=== PATIENT | female | born 1930 | race Hispanic/Latino ===

== ENCOUNTER 2017-06-04 12:04 | Inpatient (IN) | payer OTHER, MEDICAID ==
--- NOTE | 2017-06-04 12:14 | ED PDOC ---
Arrival/HPI - General Chief Complaint: Dizziness/Lightheaded Time Seen by Provider: 06/04/17 12:13 Historian: Patient, EMS - History of Present Illness Narrative History of Present Illness (Text): 06/04/17 12:33 pt p/w sudden onset of severe uncontrolled shaking/jittery, tremors, + very lightheaded/dizzy spells, prior to ED arrival; pt states she became alarmed by the symptoms and decided to call 911/EMS to come to ED for further eval; pt felt like she may have passed out; pt states no fever, ? 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 PCP: Dr MOORE pt is ambidextrous pt lives alone 06/04/17 18:45 Time/Duration: Prior to Arrival Symptom Onset: Sudden Symptom Course: Unchanged Quality: Cramping Severity Level: Mild Activities at Onset: Rest Context: Home Past Medical History - Provider Review Nursing Documentation Reviewed: Yes - Travel History Have you recently traveled outside [place] w/in the past 3 mons?: No - Past History Past History: No Previous - Infectious Disease Hx of Infectious Diseases: None - Tetanus Immunization Tetanus Immunization: Unknown - Reproductive Menopause: Yes Currently : No - Cardiac Hx Cardiac Disorders: Yes (mi cad) Hx Hypertension: Yes Hx Pacemaker: No Hx Peripheral Edema: Yes (right leg) Other/Comment: Stents x3 - Pulmonary Hx Respiratory Disorders: No (hx pe) Hx Asthma: No Hx Chronic Obstructive Pulmonary Disease (COPD): No Hx Emphysema: No - Neurological Hx Neurological Disorder: Yes (NEUROPATHY) HX Cerebrovascular Accident: No Hx Dementia: No Hx Seizures: Yes - HEENT Hx HEENT Disorder: Yes Hx Cataracts: Yes (B/L CATARACT WITH SX) - Renal Hx Renal Disorder: No - Endocrine/Metabolic Hx Endocrine Disorders: Yes Hx Diabetes Mellitus Type 2: Yes - Hematological/Oncological Hx Blood Disorders: No (blood transfusion) Hx Anemia: No Hx Cancer: No - Integumentary Other/Comment: reddened sacrum/buttocks - Musculoskeletal/Rheumatological Hx Falls: Yes (last week fx r great and 3rd toe) Hx Fractures: Yes (right great and 3rd toe fell last week) Hx Unsteady Gait: Yes (needs a walker) - Gastrointestinal Hx Gastrointestinal Disorders: Yes (CONSTIPATION,GASTRITIS,ESOPHAGITIS) - Genitourinary/Gynecological Hx Genitourinary Disorders: No - Psychiatric Hx Psychophysiologic Disorder: No Hx Depression: No Hx Emotional Abuse: No Hx Physical Abuse: No Hx Substance Use: No - Past Surgical History Past Surgical History: Unable to Obtain - Surgical History Hx Cardiac Catheterization: Yes Hx Coronary Stent: Yes (x3) Other/Comment: 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 - Anesthesia Hx Anesthesia: Yes Hx Anesthesia Reactions: Yes (VOMITING) Hx Malignant Hyperthermia: No - Suicidal Assessment Feels Threatened In Home Enviroment: No Family/Social History - Physician Review Nursing Documentation Reviewed: Yes Family/Social History: Unknown Family HX Smoking Status: Former Smoker Hx Alcohol Use: No Hx Substance Use: No Hx Substance Use Treatment: No Allergies/Home Meds Allergies/Adverse Reactions: Allergies No Known Allergies Allergy (Verified 06/04/17 17:26) Home Medications: Home Meds Medication Instructions Recorded Confirmed Aspirin [Aspir 81] 81 mg PO DAILY 08/08/11 06/04/17 [place] Oil/Providence-3 Fatty Acids 500 mg PO DAILY 08/08/11 06/04/17 [Fish Oil 500 mg Softgel] Vitamin B Complex & Vitamin C 1 tab PO DAILY 08/08/11 06/04/17 [Strovite] Colesevelam HCl [Welchol] 625 mg PO BID 06/04/17 06/04/17 Lamotrigine [Lamictal Xr] 25 mg PO DAILY 06/04/17 06/04/17 Lisinopril [Zestril] 20 mg PO DAILY 06/04/17 06/04/17 Omeprazole 20 mg PO DAILY 06/04/17 06/04/17 PARoxetine [Paxil] 20 mg PO DAILY 06/04/17 06/04/17 Simvastatin [Zocor] 20 mg PO DAILY 06/04/17 06/04/17 amLODIPine [Norvasc] 10 mg PO DAILY 06/04/17 06/04/17 Review of Systems - Review of Systems Constitutional: Fatigue Eyes: Normal ENT: Normal Respiratory: SOB Cardiovascular: Palpitations. absent: Chest Pain Gastrointestinal: Normal Genitourinary Female: Normal Musculoskeletal: Normal Skin: Normal Neurological: Dizziness, Other (tremors/shakes) Endocrine: Normal Hemo/Lymphatic: Normal Psychiatric: Normal Physical Exam Vital Signs Reviewed: Yes Vital Signs Temp Pulse Resp BP Pulse Ox 06/04/17 14:50 102 H 20 126/68 96 06/04/17 12:10 100.8 F H 114 H 20 159/81 H 98 Temperature: Febrile Blood Pressure: Hypertensive Pulse: Tachycardic Respiratory Rate: Normal Appearance: Positive for: Well-Appearing, Non-Toxic, Uncomfortable, Other (alert /awake, GCS = 15, oriented x 3, resting in bed, NAD, uncomfortable) Pain Distress: None Mental Status: Positive for: Alert and Oriented X 3 - Systems Exam Head: Present: Atraumatic, Normocephalic, Other (mild bi-temporal wasting) Pupils: Present: PERRL, Other (visual field intact b/l, no photophobia, sclera anicteric, no nystagmus) Extroacular Muscles: Present: EOMI Conjunctiva: Present: Normal Ears: Present: Normal Mouth: Present: Dry, Other (uvula/tongue are midline, no exudate/lesions, intact dentitions, mild dry oral mucosa) Pharnyx: Present: Normal Nose (External): Present: Atraumatic Nose (Internal): Present: Normal Inspection Neck: Present: Normal Range of Motion, Trachea Midline, Other (no midline tenderness, no meningeal signs, no step off). No: Meningeal Signs, MIDLINE TENDERNESS Respiratory/Chest: Present: Clear to Auscultation, Good Air Exchange, Other ( CTA b/l, no w/r/r). No: Respiratory Distress, Accessory Muscle Use Cardiovascular: Present: Normal S1, S2, Tachycardic. No: Murmurs Abdomen: Present: Normal Bowel Sounds, Other (well nourished female, no focal tenderness; no jeffers's sign, no mcburney's point tenderness, no masses/rebound/ guarding/rigidity) Rectal: Present: Normal Rectal Tone, Other (GUAIC -). No: Occult Blood, Rectal Tenderness, Gross Blood, Melena, Hemorrhoids Back: Present: Normal Inspection. No: CVA Tenderness, Midline Tenderness Upper Extremity: Present: Normal Inspection, Normal ROM, NORMAL PULSES, Neurovascularly Intact. No: Deformity Lower Extremity: Present: Normal Inspection, NORMAL PULSES, Normal ROM, Neurovascularly Intact. No: Deformity Neurological: Present: GCS=15, CN II-XII Intact, Speech Normal, Other (NIH stroke scale ~ 0) Skin: Present: Warm, Dry, Pale, Other (cap refill ~ 1sec, no ulcerations, no petechiae) Psychiatric: Present: Alert, Oriented x 3 Medical Decision Making ED Course and Treatment: 06/04/17 12:34 Impression: near syncope, headache, palpitations, shakey i have consider all the differential diagnosis regarding pt's chief medical complaints/clinical findings, including but are not limited to: dizziness/ lightheadedness/palpitations A/P: dizziness/palpitations, near syncope, shakey - labs - iv - ekg - ct - xray - ua - supportive care - observe/reevaluation 06/04/17 14:30 pt is currently comfortable, pt remained symptomatic with dizziness/shakiness when changing positions pt's vital signs are stable currently pt is made aware of her medical results agrees with admission/tele paging Dr Arredondo [phone] Dr Arredondo contacted, made aware, agrees with admission, would like blood cultures, and to consult Dr Keita (GI); abx accordingly Re-evaluation Time: 14:20 Reassessment Condition: Improving,but remains with symptoms - Critical Care Critical Care Minutes: 45 minutes Critical Care Time: Excluding Proc Time Narrative Critical Care (Text): 06/04/17 14:21 critical care time: 45min, excluding procedure time, excluding time teaching residents/students/mid-level providers; including initial eval/diagnosis, diagnostic interpretation, re-eval, consultations, final disposition - Lab Interpretations Lab Results: 06/04/17 12:50 06/04/17 12:50 Lab Results 06/04/17 14:20: Blood Type AB POSITIVE, Antibody Screen Negative, Crossmatch See Detail, BBK History Checked Patient has bt 06/04/17 12:50: TSH 3rd Generation 1.23 06/04/17 12:50: Sodium 143, Potassium 4.2, Chloride 108 H, Carbon Dioxide 24, Anion Gap 15, BUN 15, Creatinine 0.7, Est GFR ( Amer) > 60, Est GFR (Non- Af Amer) > 60, Random Glucose 114 H, Calcium 9.4, Total Bilirubin 0.6, AST 23, ALT 26, Alkaline Phosphatase 109, Troponin I < 0.01, Total Protein 6.3, Albumin 3.8, Globulin 2.6, Albumin/Globulin Ratio 1.5, Lipase 129 06/04/17 12:50: PT 11.2, INR 0.98, APTT 29.4 06/04/17 12:50: WBC 12.8 H D, RBC 3.48 L, Hgb 7.7 L, Hct 26.0 L, MCV 74.7 L, MCH 22.1 L, MCHC 29.6 L, RDW 16.1 H, Plt Count 269, MPV 9.7, Gran % 82.0 H, Lymph % (Auto) 9.5 L, Callaway % (Auto) 7.1 H, Eos % (Auto) 1.2 L, Baso % (Auto) 0.2 , Gran # 10.47 H, Lymph # (Auto) 1.2, Callaway # (Auto) 0.9 H, Eos # (Auto) 0.2, Baso # (Auto) 0.03 I have reviewed the lab results: Yes Interpretation: Abnormal lab values (low H/H) - RAD Interpretation Narrative RAD Interpretations (Text): 06/04/17 13:20 Chest X-ray: Creator : Daphne Bardales MD COMPARISON: 11/07/2014. FINDINGS: LUNGS: The lungs are well inflated. There is mild pulmonary venous congestion. PLEURA: No significant pleural effusion identified, no pneumothorax apparent. CARDIOVASCULAR: The heart is normal in size. Atherosclerotic aortic arch calcifications are present. OSSEOUS STRUCTURES: No significant abnormalities. VISUALIZED UPPER ABDOMEN: Normal. OTHER FINDINGS: There is chronic elevation of the right hemidiaphragm. IMPRESSION: No active pulmonary disease. 06/04/17 13:[address]: Creator : Daphne Bardales MD COMPARISON: 12/24/2013 FINDINGS: HEMORRHAGE: No intracranial hemorrhage. BRAIN: Schultz-white matter differentiation is preserved. There is no mass, mass effect or abnormal extra-axial fluid collection. There is no territorial infarction.There are coarse atherosclerotic calcifications in the cavernous carotid and vertebral arteries. VENTRICLES: There is mild age-related global parenchymal volume loss and proportionate enlargement of the ventricles and cortical sulci. CALVARIUM: The skull base and calvarium. PARANASAL SINUSES: Predominantly clear. MASTOID AIR CELLS: Predominantly clear. There is cerumen in the external auditory canals, worse on the left. OTHER FINDINGS: None. IMPRESSION: No acute intracranial abnormality. Radiology Orders: 06/04/17 12:35 HEAD W/O CONTRAST [CT] Stat 06/04/17 12:36 CHEST PORTABLE [RAD] Stat Central Office Operator: Radiologist - EKG Interpretation EKG Interpretation (Text): 06/04/17 12:38 Sinus tachycardia at 115 bpm, normal axis, no ectopy, qs in leads III, inverted T in leads II/III/V3-6, no st changes, ABNL EKG; unchanged compare with old ekg 10/2014 Interpreted by ED Physician: Yes Type: 12 lead EKG Comparison: Similar to previous EKG - Medication Orders Current Medication Orders: Acetaminophen (Tylenol 325mg Tab) 650 mg PO Q6H PRN PRN Reason: Fever >100.4 F Sodium Chloride (Sodium Chloride 0.9%) 1,000 mls @ 100 mls/hr IV .Q10H PREM Last Admin: 06/04/17 12:57 Dose: 100 mls/hr eMAR Start Stop Document 06/04/17 12:57 AMELIA (Rec: 06/04/17 12:57 AMELIA [id number]) Intravenous Solution Start Date 06/04/17 Start Time 12:57 Ceftriaxone Sodium (Rocephin 1 Gram Ivpb) 1 gm in 100 mls @ 100 mls/hr IVPB DAILY PREM PRN Reason: Protocol Sodium Chloride (Sodium Chloride 0.45%) 1,000 mls @ 75 mls/hr IV .[id number] PREM Insulin Human Regular (Humulin R Low) 0 units SC ACHS PREM PRN Reason: Protocol Metoprolol Succinate (Toprol Xl) 25 mg PO BRK PREM Non-Formulary Medication (Lamotrigine [Lamictal Xr]) 25 mg PO DAILY PREM Ondansetron HCl (Zofran Inj) 4 mg IVP Q6H PRN PRN Reason: Nausea/Vomiting Pantoprazole Sodium (Protonix Inj) 40 mg IVP DAILY PREM Paroxetine HCl (Paxil) 20 mg PO DAILY PREM Discontinued Medications Acetaminophen (Tylenol 325mg Tab) 650 mg PO STAT STA Stop: 06/04/17 14:16 Last Admin: 06/04/17 14:45 Dose: 650 mg MAR Pain/Vitals Document 06/04/17 14:45 AMELIA (Rec: 06/04/17 15:00 AMELIA [id number]) Pain Reassessment Is This A Pain ReAssessment? No Sleep Is patient sleeping during reassessment? No Presence of Pain Presence of Pain Yes Pain Scale Used Pain Scale Used Numeric Location Description Intermittent Intensity 4 Aspirin (Aspirin) 325 mg PO STAT STA Stop: 06/04/17 12:38 Last Admin: 06/04/17 12:56 Dose: 325 mg - Scribe Statement The provider has reviewed the documentation as recorded by the Meghan Gusman Provider Scribe Attestation: All medical record entries made by the Meghan were at my direction and personally dictated by me. I have reviewed the chart and agree that the record accurately reflects my personal performance of the history, physical exam, medical decision making, and the department course for this patient. I have also personally directed, reviewed, and agree with the discharge instructions and disposition. Disposition/Present on Arrival - Present on Arrival Any Indicators Present on Arrival: No History of DVT/PE: No History of Uncontrolled Diabetes: No Urinary Catheter: No History of Decub. Ulcer: No History Surgical Site Infection Following: None - Disposition Have Diagnosis and Disposition been Completed?: Yes Diagnosis: Anemia, Near syncope, Dehydration, Fever, At risk for sepsis Disposition: HOSPITALIZED Disposition Time: 14:23 Patient Plan: Admission, Telemetry Patient Problems: Current Active Problems Problem Status Onset Near syncope Acute Anemia Acute Dehydration Acute Fever Acute At risk for sepsis Acute Condition: STABLE
[2017-06-04] MEDS ORDERED: Sodium Chloride 0.9% 1,000 ML IV SCH (12:45)
[2017-06-04 13:14] LABS: BASO # 0.03 K/mm3 (0.0-2.0); BASO % 0.2 % (0.0-3.0); EOS # 0.2 (0.0-0.7); EOS % 1.2 % (1.5-5.0); GRAN # 10.47 (1.4-6.5); HEMOGLOBIN 7.7 g/dL (12.0-16.0); LYMPH # 1.2 (1.2-3.4); LYMPH % 9.5 % (22.0-35.0); MEAN CELL VOLUME 74.7 fl (80.0-105.0); MEAN CORPUSCULAR HEMOGLOBIN 22.1 pg (25.0-35.0); MEAN CORPUSCULAR HGB CONC 29.6 g/dl (31.0-37.0); MEAN PLATELET VOLUME 9.7 fl (7.0-11.0); MONO # 0.9 (0.1-0.6); MONO % 7.1 % (1.0-6.0); RBC 3.48 10^6/uL (3.5-6.1); RED CELL DISTRIBUTION WIDTH 16.1 % (11.5-14.5); WHITE BLOOD COUNT 12.8 10^3/ul (4.5-11.0)
--- NOTE | 2017-06-04 13:18 | RAD ---
HISTORY: dizziness/lightheadedness/[place] COMPARISON: 11/07/2014. FINDINGS: LUNGS: The lungs are well inflated. There is mild pulmonary venous congestion. PLEURA: No significant pleural effusion identified, no pneumothorax apparent. CARDIOVASCULAR: The heart is normal in size. Atherosclerotic aortic arch calcifications are present. OSSEOUS STRUCTURES: No significant abnormalities. VISUALIZED UPPER ABDOMEN: Normal. OTHER FINDINGS: There is chronic elevation of the right hemidiaphragm. IMPRESSION: No active pulmonary disease.
[2017-06-04 13:20] LABS: ALB/GLOB RATIO 1.5 (1.1-1.8); ALBUMIN 3.8 g/dL (3.0-4.8); ALT/SGPT 26 U/L (7-56); AST/SGOT 23 U/L (14-36); BLOOD UREA NITROGEN 15 mg/dL (7-21); CALCIUM 9.4 mg/dL (8.4-10.5); GFR AFRICAN-AMERICAN > 60; GFR NON-AFRICAN AMERICAN > 60; LIPASE 129 U/L (23-300)
[2017-06-04 13:31] LABS: INR 0.98 (0.93-1.08); PARTIAL THROMBOPLASTIN TIME 29.4 Seconds (25.1-36.5); PROTHROMBIN TIME 11.2 SECONDS (9.4-12.5); TROPONIN I < 0.01 ng/mL
--- NOTE | 2017-06-04 13:40 | CT ---
PROCEDURE: CT HEAD WITHOUT CONTRAST. HISTORY: dizziness/lightheadedness COMPARISON: 12/24/2013 TECHNIQUE: Axial computed tomography images were obtained through the head/brain without intravenous contrast. Radiation dose: Total exam DLP = 816.69 MGy-cm. This CT exam was performed using one or more of the following dose reduction techniques: Automated exposure control, adjustment of the mA and/or kV according to patient size, and/or use of iterative reconstruction technique. FINDINGS: HEMORRHAGE: No intracranial hemorrhage. BRAIN: Schultz-white matter differentiation is preserved. There is no mass, mass effect or abnormal extra-axial fluid collection. There is no territorial infarction.There are coarse atherosclerotic calcifications in the cavernous carotid and vertebral arteries. VENTRICLES: There is mild age-related global parenchymal volume loss and proportionate enlargement of the ventricles and cortical sulci. CALVARIUM: The skull base and calvarium. PARANASAL SINUSES: Predominantly clear. MASTOID AIR CELLS: Predominantly clear. There is cerumen in the external auditory canals, worse on the left. OTHER FINDINGS: None. IMPRESSION: No acute intracranial abnormality.
[2017-06-04 16:44] LABS: URINE BILIRUBIN NEGATIVE (NEGATIVE); URINE BLOOD TRACE-INTACT (NEGATIVE); URINE GLUCOSE (UA) NEGATIVE (NEGATIVE); URINE LEUKOCYTE ESTERASE SMALL Leu/uL (NEGATIVE); URINE PROTEIN NEGATIVE mg/dL (<30 mg/dL); URINE UROBILINOGEN 0.2 E.U./dL (<1 E.U./dL)
[2017-06-04 16:47] LABS: URINE APPEARANCE TURBID (CLEAR); URINE COLOR YELLOW (YELLOW)
[2017-06-04 16:59] LABS: URINE BACTERIA MANY (NEG); URINE RBC 0 - 2 /hpf (0-2)
[2017-06-04] MEDS ORDERED: Sodium Chloride 0.45% 1,000 ML IV SCH ×2 (17:30)
[2017-06-04] MEDS: LAMOTRIGINE 25 MG PO SCH (18:43)
[2017-06-04] MEDS: cefTRIAXone 1 gm 1 GM/100 ML BAG IVPB SCH (18:44)
[2017-06-04 19:43] VITALS: BMI 32.2
[2017-06-04] MEDS ORDERED: Pneumococcal 23-Valent Vaccine IM ONE (19:43)
--- NOTE | 2017-06-04 21:11 | CARD ---
APPROVED REPORT EKG Measurement Heart [id number] <Conclusion> Sinus tachycardia Nonspecific ST and T wave abnormality Abnormal ECG
[2017-06-05] MEDS: Insulin Reg-LOW-Coverage SC SCH ×4 (00:49→16:51)
--- NOTE | 2017-06-05 05:01 | HP ---
HISTORY OF PRESENT ILLNESS: Patient is an 86-year-old female, who was brought to emergency room because of not feeling well, having fever at home, feeling light headed and dizzy, not eating well. PAST MEDICAL HISTORY: She has significant past medical history for: 1. Hypertension. 2. History of depression. 3. Gastritis. 4. Coronary artery disease, status post angioplasty. 5. Diabetic neuropathy. 6. History of seizure disorder. 7. Non-insulin dependant diabetes. ALLERGIES: SHE IS NOT ALLERGIC TO ANY MEDICATIONS. MEDICATION AT HOME: She is on simvastatin 20 mg daily, amlodipine 10 mg daily, lisinopril 20 mg daily, Paxil 20 mg daily, omeprazole 20 mg daily, Lamictal 25 daily, WelChol 625 twice a day, aspirin 81 daily, multivitamin, and salmon oil. SOCIAL HISTORY: She used to be heavy smoker, but quit 40 years ago. PHYSICAL EXAMINATION: GENERAL: She is awake, alert, oriented, communicative. VITAL SIGNS: Temperature 100.8, pulse 114, respirations 20, blood pressure 126/68. LUNGS: Bilateral fair airflow. No rhonchi or crackles. HEART: S1, S2 audible. ABDOMEN: Soft, nontender. No rebound. No guarding. NEUROLOGIC: She is awake, alert, oriented, communicative. LABORATORY DATA: WBC is 12.8, hemoglobin 7.7, hematocrit 26, platelet 269, PT 11.2, INR 0.98. Chemistry: Sodium 143, potassium 4.2, chloride 108, CO2 24, BUN 15, creatinine 0.7, blood sugar of 114. LFTs are within normal limit. Urine shows positive nitrites and leukocytes, wbc's 10 to 15. She had x-ray chest done that shows no active pulmonary disease. CT scan of the head and brain shows no acute intracranial abnormalities. ASSESSMENT: 1. Lethargy with fever. 2. Symptomatic anemia. 3. Hypertension. 4. Hyperlipidemia. 5. Coronary artery disease. 6. Non-insulin dependant diabetes. 7. Seizure disorder. PLAN: Patient will be admitted. We will transfuse 2 packed RBCs and we will consult Dr. Burk. We will monitor blood sugar and empirically start her on antibiotics. We will follow up cultures. Mahmoodah Perveen, MD [facility] # [id number]
[2017-06-05 07:21] LABS: BASO # 0.05 K/mm3 (0.0-2.0); BASO % 0.7 % (0.0-3.0); EOS # 0.2 (0.0-0.7); EOS % 2.9 % (1.5-5.0); GRAN # 4.93 (1.4-6.5); GRAN % 65.1 % (50.0-68.0); LYMPH # 1.8 (1.2-3.4); LYMPH % 23.6 % (22.0-35.0); MEAN CELL VOLUME 75.9 fl (80.0-105.0); MEAN CORPUSCULAR HEMOGLOBIN 23.4 pg (25.0-35.0); MEAN CORPUSCULAR HGB CONC 30.8 g/dl (31.0-37.0); MEAN PLATELET VOLUME 9.9 fl (7.0-11.0); MONO # 0.6 (0.1-0.6); MONO % 7.7 % (1.0-6.0); RBC 3.98 10^6/uL (3.5-6.1); RED CELL DISTRIBUTION WIDTH 16.6 % (11.5-14.5); WHITE BLOOD COUNT 7.6 10^3/ul (4.5-11.0)
[2017-06-05 07:28] LABS: HEMOGLOBIN 9.3 g/dL (12.0-16.0)
[2017-06-05 07:37] LABS: ALB/GLOB RATIO 1.3 (1.1-1.8); ALBUMIN 3.5 g/dL (3.0-4.8); ALT/SGPT 22 U/L (7-56); AST/SGOT 21 U/L (14-36); BLOOD UREA NITROGEN 9 mg/dL (7-21); GFR AFRICAN-AMERICAN > 60; GFR NON-AFRICAN AMERICAN > 60
[2017-06-05] MEDS: Metoprolol Succinate 25 mg XL Tab PO SCH (09:40)
[2017-06-05] MEDS: cefTRIAXone 1 gm 1 GM/100 ML BAG IVPB SCH (09:40)
[2017-06-05] MEDS: LAMOTRIGINE 25 MG PO SCH (09:41)
[2017-06-05] MEDS ORDERED: Barium Sulfate Susp 2.1% w/v, 2.0% w/w 450 mL Bottle PO ONE (10:38)
--- NOTE | 2017-06-05 12:16 | PN ---
DATE: SUBJECTIVE: The patient is 86 years old. Seen and examined, lying in bed, seems to be comfortable. She states she feels better than yesterday. No more rectal bleeding. Fever has subsided. PHYSICAL EXAMINATION: VITAL SIGNS: She is afebrile, pulse 77, respirations 18, blood pressure 144/74. LUNGS: Bilateral good airflow. No rhonchi or crackle. HEART: S1 and S2 audible. ABDOMEN: Soft. Nontender. No rebound. No guarding. NEUROLOGIC: She is awake, alert, oriented, communicative. EXTREMITIES: Bilateral leg, no edema. LABORATORY EXAM: WBC 7.6, hemoglobin 9.3, hematocrit 30.4, platelet of 244. Chemistry: Sodium 144, potassium 3.6, chloride 109, CO2 of 25, BUN 9, creatinine 0.6, blood sugar of 103. Urine cultures are pending. ASSESSMENT: 1. Symptomatic anemia, probably secondary to gastrointestinal bleed. 2. Hypertension. 3. Jwl-nzeajjr-cdomqfvmt diabetes. 4. Status post 2 blood transfusions. 5. Fever secondary to urinary tract infection. PLAN: I will follow up urine culture for identification. I will advance her diet. Discontinue her IV fluids. Order for stool for the occult blood. Monitor her blood sugar. Once the bacteria is identified, we will make discharge plan and she can have endoscopy, colonoscopy done as outpatient. She will also get CT scan of the abdomen and pelvis and make further recommendations. Alyx Arredondo MD
[2017-06-05] MEDS ORDERED: Iohexol 350 MG/100 ML VIAL ONE (13:20)
--- NOTE | 2017-06-05 14:40 | CT ---
PROCEDURE: CT Abdomen and Pelvis with contrast HISTORY: Anemia COMPARISON: 11/07/2014. TECHNIQUE: CT scan of the abdomen and pelvis was performed after administration of intravenous contrast. Oral contrast was administered. Coronal and sagittal reformatted images were obtained. Contrast dose: 100 cc Omnipaque 350 Radiation dose: Total exam DLP = 570.89 mGy-cm. This CT exam was performed using one or more of the following dose reduction techniques: Automated exposure control, adjustment of the mA and/or kV according to patient size, and/or use of iterative reconstruction technique. FINDINGS: LOWER THORAX: There is subsegmental atelectasis in the lower lobes with more confluent airspace disease in the right lung base. LIVER: Normal in size with homogeneous enhancement. No gross lesion or ductal dilatation. GALLBLADDER AND BILE DUCTS: Surgically absent. PANCREAS: Normal in size with homogeneous enhancement. No gross lesion or ductal dilatation. SPLEEN: Normal in size and appearance. ADRENALS: No discrete nodule. KIDNEYS AND URETERS: There is mild renal cortical atrophy. No hydronephrosis. No solid mass. Small simple cyst versus hydronephrosis in the lower pole of the right kidney. VASCULATURE: Advanced atherosclerotic aortoiliac calcifications. No aortic aneurysm. BOWEL: The small bowel loops are normal in caliber. There is mild sigmoid diverticulosis without CT evidence for acute diverticulitis. There is fecal stasis in the rectum. No bowel dilatation or obstruction. APPENDIX: No inflammatory changes in the right lower quadrant. PERITONEUM: No free fluid. No free air. LYMPH NODES: No enlarged lymph nodes. BLADDER: Normal in appearance REPRODUCTIVE: The uterus is normal in size. There are calcified fibroids in the left posterior wall. BONES: No acute fracture. Diffuse bone demineralization and multilevel degenerative disc disease. OTHER FINDINGS: There is a small sliding hiatal hernia. IMPRESSION: 1. Confluent airspace disease in the right lung base could represent pneumonia. Follow-up is advised. 2. No acute abdominal or pelvic abnormality. 3. Additional chronic findings as described above.
--- NOTE | 2017-06-05 20:19 | CON ---
DATE: 06/05/2017 GASTROENTEROLOGY CONSULTATION REQUESTING PHYSICIAN: Alyx Arredondo MD REASON FOR CONSULTATION: I have been asked to see this 86-year-old female, well known to me for many years with a history of diverticulosis, esophageal ulcers, diabetes mellitus, chronic anemia, who comes to the hospital with generalized weakness, lightheadedness, dizziness, and poor appetite. Routine blood work in the emergency room showed the patient to be anemic with a hemoglobin of 7.7. She was also noted to have pyuria and nitrates in her urine. She denies any hematuria, dysuria, nausea, vomiting, abdominal pain, rectal bleeding, or melena. Patient last had a colonoscopy in 2012 which revealed diverticulosis. She had an endoscopy in 2013 which revealed esophageal ulcers. Again, she does have a history of anemia, but I do not recall her blood count ever being this low. She denies any weight loss. PAST MEDICAL HISTORY: As above. Again, she has a history of diverticulosis, esophageal ulcers, anemia, coronary artery disease status post angioplasty, on aspirin, hypertension, diabetes mellitus, seizure disorder, diabetic neuropathy, gastritis, and depression. SOCIAL HISTORY She quit cigarette smoking many years ago. She denies alcohol use. FAMILY HISTORY: Noncontributory. REVIEW OF SYSTEMS: Fourteen-point review of systems is notable for generalized weakness, lightheadedness, dizziness, and poor appetite. MEDICATIONS AT HOME: Include a baby aspirin, Welchol 625 mg twice a day, Lamictal 25 mg daily, omeprazole 20 mg once a day, lisinopril 20 mg once a day, amlodipine 10 mg once a day, simvastatin 20 mg daily, Paxil 20 mg daily. PHYSICAL EXAMINATION: GENERAL: Elderly female, lying in bed in no acute distress. She is awake, alert. VITAL SIGNS: Reveal a temperature of 98.7, blood pressure 144/74, heart rate of 79. HEENT: Reveals sclerae to be white. Conjunctivae are pink. NECK: Supple. CHEST: Lungs are clear. HEART: Reveals regular rate and rhythm. ABDOMEN: Soft, nontender. EXTREMITIES: Show no edema. LABORATORY DATA: Reveal chloride of 109, bicarb of 25, BUN 9, creatinine 0.6. AST, ALT, alk phos is normal. Total bilirubin is 1.4. CBC from this morning shows a hemoglobin 9.3, up from 7.7 after 1 unit of packed red blood cells. White blood cell count 7.6, platelet count 244,000. Coags are normal. Urinalysis shows positive nitrites and 10 to 15 wbc's with many bacteria. IMPRESSION: An 86-year-old female with symptomatic anemia with generalized weakness, lightheadedness, and dizziness. She denies any melena or rectal bleeding. She did have a colonoscopy 5 years ago, which showed diverticulosis. She also has a history of esophageal ulcers found on endoscopy in 2013. Clinically, she does not appear to be bleeding and I suspect that this anemia is chronic. She also appears to have a urinary tract infection. RECOMMENDATIONS: 1. Check stool for occult blood. 2. Check urine C&S. 3. I will request a CT scan of the abdomen and pelvis with oral and IV contrast. 4. If CAT scan is negative, patient can be discharged home with outpatient followup. Patient can have an outpatient endoscopy and colonoscopy since she does not appear to have an active GI bleeding. Vlad Burk MD
[2017-06-06] MEDS: Insulin Reg-LOW-Coverage SC SCH ×5 (00:22→22:34)
[2017-06-06] MEDS: Metoprolol Succinate 25 mg XL Tab PO SCH (08:34)
[2017-06-06] MEDS: Pantoprazole 40 mg EC Tab PO SCH (08:34)
[2017-06-06] MEDS: cefTRIAXone 1 gm 1 GM/100 ML BAG IVPB SCH (10:18)
[2017-06-06] MEDS: LAMOTRIGINE 25 MG PO SCH (10:18)
--- NOTE | 2017-06-06 16:07 | CT ---
PROCEDURE: CT scan of the chest dated 06/06/2017. HISTORY: Pneumonia. COMPARISON: Comparison made with chest radiograph 06/04/[address] scan of the abdomen pelvis 06/05/2017 which imaged both lung bases. . TECHNIQUE: Contiguous axial images were obtained through the chest without intravenous contrast enhancement. Sagittal and coronal reconstructions were performed. Radiation dose (DLP): 188.80 mGy-cm. This CT exam was performed using one or more of the following dose reduction techniques: Automated exposure control, adjustment of the mA and/or kV according to patient size, and/or use of iterative reconstruction technique. FINDINGS: LUNGS: There is an irregular area of chronic atelectasis/scarring changes in the right lung base on altered in appearance from the prior CT scan of the abdomen and pelvis which demonstrated both lung bases. There is associated pleural thickening along the posterior sulcus as well. Minor scarring changes also noted in the middle lobe and lingular regions as well. There are no parenchymal masses or obvious nodules. MEDIASTINUM: Heart is enlarged. No significant pericardial effusion. Ascending thoracic aorta measures approximately 3.64 cm and descending thoracic aorta measures approximately 2.5 cm. Calcified atherosclerotic plaque seen along the thoracic aorta. . Right brachiocephalic and left common carotid artery arise from a common trunk. Pulmonary trunk is prominent measuring 3.6 cm on; rule out underlying mild pulmonary arterial hypertension. . Few small nonspecific mediastinal lymph nodes. Evaluation for hilar adenopathy is limited due to the lack of circulating intravenous contrast material. Central airways midline and patent. No large central endoluminal lesions. Tiny hiatal hernia. PLEURA: No pleural fluid. No pneumothorax. BONES: Mild moderate multilevel degenerative spondylosis of the thoracic spine. There are no acute compression fractures no retropulsed fragments. UPPER ABDOMEN: Please see CT scan of the abdomen pelvis 06/13/2017 for additional details. OTHER FINDINGS: None. IMPRESSION: Irregular area chronic subsegmental atelectasis or scarring right lung base with associated pleural thickening along the posterior sulcus. Minor scarring changes seen in the middle lobe and lingular regions. No evidence of effusion or pneumothorax. Cardiomegaly. Prominent pulmonary trunk; rule out pulmonary arterial hypertension.
--- NOTE | 2017-06-06 16:12 | PN ---
DATE: SUBJECTIVE: The patient is an 86-year-old white female who initially came in not feeling well, had fever, slight rectal bleed with hemoglobin of 7.7, received 2 blood transfusions, seems to be doing well. Does complain of cough and congestion. Her CT scan of the abdomen and pelvis shows lower lobe infiltrate. Ordered CT scan of the chest, results not available yet. PHYSICAL EXAMINATION: GENERAL: She does complain of cough and congestion. No nausea or vomiting. No diarrhea. VITAL SIGNS: She is afebrile, pulse 70, respirations 19, blood pressure 135/81. LUNGS: Bilateral fair airflow. Diffuse soft crackle at bases. HEART: S1 and S2 audible. ABDOMEN: Soft. Nontender. No rebound. No guarding. NEUROLOGIC: The patient is awake, alert, oriented, communicative. LABORATORY EXAM: Blood cultures are negative. Urine culture shows identification to follow. ASSESSMENT: 1. Symptomatic anemia, status post blood transfusion. 2. Gram-negative urinary tract infection. 3. History of gastrointestinal bleed. 4. Bilateral basal infiltrate, community acquired pneumonia. 5. History of hypertension. 6. Hyperlipidemia. 7. Gastritis. 8. History of seizure disorder. PLAN: The patient is hemodynamically stable. I will discontinue telemetry. I will start her on IV antibiotics. She is on Rocephin. We will add doxycycline and follow up official report of CT scan of the chest. We will start her on nebulizer treatment. We will reevaluate the patient in the a.m. Alyx Arredondo MD
[2017-06-06] MEDS: POLYETHYLENE GLYCOL 3350 17 GM/Dose PACKET PO SCH (17:46)
--- NOTE | 2017-06-06 19:32 | PN ---
DATE: 06/06/2017 SUBJECTIVE: The patient is lying in bed, comfortable. She has not had any evidence of active GI bleeding. She denies any cough or shortness of breath. PHYSICAL EXAMINATION: VITAL SIGNS: Reveal temperature of 97.9, blood pressure 135/81, heart rate is 70. HEENT: Reveal sclerae to be white. Conjunctivae pale. NECK: Supple. CHEST: Reveal lungs to be clear with some scattered rhonchi at the bases. HEART: Reveals regular rate and rhythm. ABDOMEN: Soft, nontender. EXTREMITIES: Show no edema. LABORATORY DATA: Reveal hemoglobin of 9.3, chloride 109, bicarb of 25. White blood cell count 7.6, platelet count 244,000. IMPRESSION: 1. Anemia. 2. Possible right lower lobe infiltrate with some airspace disease seen on CT scan of the abdomen and pelvis. 3. Diverticulosis with fecal retention. RECOMMENDATIONS: 1. We will start the patient on MiraLax 17 g twice a day. 2. We will give Dulcolax suppository. 3. Follow serial hematocrits. Vlad Burk MD
[2017-06-07] MEDS: Insulin Reg-LOW-Coverage SC SCH ×4 (07:38→22:08)
[2017-06-07] MEDS: Metoprolol Succinate 25 mg XL Tab PO SCH (08:27)
[2017-06-07] MEDS: Pantoprazole 40 mg EC Tab PO SCH (08:27)
[2017-06-07 09:50] LABS: IRON 25 ug/dL (45-180)
--- NOTE | 2017-06-07 09:57 | PN ---
DATE: 06/07/2017 HISTORY OF PRESENT ILLNESS: Ms. Ward is an 86-year-old female admitted with severe anemia. She received 2 units of blood transfusion during the hospitalization. Denies any bleeding from any site. No dark colored stools. She has history of seizure disorder and depression. Coronary artery disease, status post angioplasty, no current issues; hypertension, blood pressure is stable on current medications. PAST MEDICAL HISTORY: Hypertension, diabetes mellitus, history of seizure disorder, coronary artery disease. ALLERGIES: NO KNOWN DRUG ALLERGIES. PAST SURGICAL HISTORY: None. MEDICATIONS: Simvastatin 20 mg daily, amlodipine 10 mg daily, lisinopril 20 mg daily, Paxil 20 mg daily, omeprazole 20 mg daily, aspirin 81 daily. PERSONAL HISTORY: Heavy smoker, quit 40 years ago. SOCIAL HISTORY: Lives at home. PHYSICAL EXAMINATION: GENERAL: Awake, alert, oriented x3, communicative. VITAL SIGNS: Temperature 98.7, heart rate 80 per minute, respiratory rate 18 per minute, blood pressure 126/70. HEENT: Pallor positive. NECK: No lymphadenopathy. CHEST: Air entry present and equal bilateral. No added sounds. CARDIOVASCULAR: S1, S2 normal. No murmur. No gallop. ABDOMEN: Soft, nontender. No hepatosplenomegaly. EXTREMITY: No edema. DIGITAL FORENSIC EXAMINER: Awake, alert, oriented x3. No focal sensory motor deficit. SKIN: Pallor positive. No petechiae. No rash. LABORATORY DATA: White count 7.6, hemoglobin 9.3, hematocrit 30.2, MCV 75, platelet 244. Sodium 144, potassium 3.6, creatinine 0.6. Urine culture positive. Gram negative rods. CURRENT MEDICATIONS: As above plus ceftriaxone and doxycycline. ASSESSMENT AND PLAN: 1. Severe anemia; status post 2 units of blood transfusion. We will do the iron studies, B12, folate level. Gastrointestinal workup in progress. 2. Gram-negative urinary tract infection, currently on ceftriaxone and doxycycline. 3. Possible upper gastrointestinal bleed. Dr. Burk following. 4. Diabetes mellitus type 2, controlled with current medication, on insulin sliding scale. 5. Hypertension, blood pressure controlled with current medications. Deborah Mera MD
[2017-06-07 10:00] LABS: % IRON SATURATION 7 % (20-55); TOTAL IRON BINDING CAPACITY 346 ug/dL (265-497)
[2017-06-07] MEDS: LAMOTRIGINE 25 MG PO SCH (10:25)
[2017-06-07] MEDS: POLYETHYLENE GLYCOL 3350 17 GM/Dose PACKET PO SCH ×2 (10:29→17:55)
[2017-06-07] MEDS: cefTRIAXone 1 gm 1 GM/100 ML BAG IVPB SCH (12:47)
[2017-06-08 07:55] VITALS: BP 144/69; PULSE 64; RESP 18; TEMP 97.8; O2SAT 96
[2017-06-08] MEDS: Insulin Reg-LOW-Coverage SC SCH ×2 (08:16→11:34)
[2017-06-08] MEDS: Metoprolol Succinate 25 mg XL Tab PO SCH (08:27)
[2017-06-08] MEDS: Pantoprazole 40 mg EC Tab PO SCH (08:27)
[2017-06-08] MEDS: POLYETHYLENE GLYCOL 3350 17 GM/Dose PACKET PO SCH (09:47)
[2017-06-08] MEDS: LAMOTRIGINE 25 MG PO SCH (09:48)
[2017-06-08] MEDS ORDERED: Piperacillin/Tazobact 3.375 gm 100 ML IVPB SCH (12:00)
--- NOTE | 2017-06-08 17:09 | CP.PCM.CON ---
History of Present Illness - History of Present Illness History of Present Illness: 86 year old female with PMH of CAD S/P PCI, HTN, history of Pulmonary embolism, peripheral neuropathy initially came in to [facility] [place] complaining of generalized weakness and lightheadedness. she was also complaining of occasional dysuria, but no hematuria, no nausea or vomiting, no flank pain, had chills, no sore throat, no cough or colds, no chest pain, no headache, diarrhea. She is found to have pyuria on urinalysis, and growing bacteria in the urine , and the patient was found to have fever on admission. Infectious Diseases consult is requested to further evaluate and manage. Review of Systems - Review of Systems All systems: reviewed and no additional remarkable complaints except Past Patient History - Infectious Disease Hx of Infectious Diseases: None - Tetanus Immunizations Tetanus Immunization: Unknown - Past Social History Smoking Status: Former Smoker - CARDIAC Hx Cardiac Disorders: Yes (mi cad) Hx Hypertension: Yes Hx Pacemaker: No Hx Peripheral Edema: Yes (right leg) Other/Comment: Stents x3 - PULMONARY Hx Respiratory Disorders: No (hx pe) Hx Asthma: No Hx Chronic Obstructive Pulmonary Disease (COPD): No Hx Emphysema: No - NEUROLOGICAL Hx Neurological Disorder: Yes (NEUROPATHY) HX Cerebrovascular Accident: No Hx Dementia: No Hx Seizures: Yes - HEENT Hx HEENT Problems: Yes Hx Cataracts: Yes (B/L CATARACT WITH SX) - RENAL Hx Chronic Kidney Disease: No - ENDOCRINE/METABOLIC Hx Endocrine Disorders: Yes Hx Diabetes Mellitus Type 2: Yes - HEMATOLOGICAL/ONCOLOGICAL Hx Blood Disorders: No (blood transfusion) Hx Anemia: No Hx Cancer: No - INTEGUMENTARY Hx Dermatological Problems: Yes Other/Comment: reddened sacrum/buttocks-IASD - MUSCULOSKELETAL/RHEUMATOLOGICAL Hx Musculoskeletal Disorders: Yes (CLOSED FX CLAVICLE,TOE FX.) Hx Falls: Yes (last week fx r great and 3rd toe) Hx Fractures: Yes (right great and 3rd toe fell last week) Hx Unsteady Gait: Yes (needs a walker) - GASTROINTESTINAL Hx Gastrointestinal Disorders: Yes (CONSTIPATION,GASTRITIS,ESOPHAGITIS) - GENITOURINARY/GYNECOLOGICAL Hx Genitourinary Disorders: Yes Hx Incontinence: Yes - PSYCHIATRIC Hx Psychophysiologic Disorder: No Hx Depression: No Hx Emotional Abuse: No Hx Physical Abuse: No Hx Substance Use: No - SURGICAL HISTORY Hx Surgeries: Yes (BILATERAL CATARACT WITH SX,STENTS X 3.) Hx Cardiac Catheterization: Yes Hx Coronary Stent: Yes (x3) Other/Comment: 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 - ANESTHESIA Hx Anesthesia: Yes Hx Anesthesia Reactions: Yes (VOMITING) Hx Malignant Hyperthermia: No Meds Home Medications: Home Medication List Medication Instructions Recorded Confirmed Type Ciprofloxacin [Cipro] 250 mg PO BID #14 tab 06/08/17 Rx Allergies/Adverse Reactions: Allergies Allergy/AdvReac Type Severity Reaction Status Date / Time No Known Allergies Allergy Verified 06/04/17 17:26 - Medications Medications: Current Medications Acetaminophen (Tylenol 325mg Tab) 650 mg PO Q6H PRN PRN Reason: Fever >100.4 F Azithromycin (Zithromax) 500 mg PO DAILY [facility] PRN Reason: Protocol Stop: 06/13/17 10:01 Ferrous Sulfate (Feosol) 324 mg PO TID [facility] Last Admin: 06/07/17 17:55 Dose: 324 mg Ceftriaxone Sodium (Rocephin 1 Gram Ivpb) 1 gm in 100 mls @ 100 mls/hr IVPB DAILY [facility] PRN Reason: Protocol Last Admin: 06/07/17 12:47 Dose: 100 mls/hr Insulin Human Regular (Humulin R Low) 0 units SC ACHS [facility] PRN Reason: Protocol Last Admin: 06/07/17 22:08 Dose: Not Given Metoprolol Succinate (Toprol Xl) 25 mg PO BRK [facility] Last Admin: 06/07/17 08:27 Dose: 25 mg Non-Formulary Medication (Lamotrigine [Lamictal Xr]) 25 mg PO DAILY [facility] Last Admin: 06/07/17 10:25 Dose: Not Given Ondansetron HCl (Zofran Inj) 4 mg IVP Q6H PRN PRN Reason: Nausea/Vomiting Pantoprazole Sodium (Protonix Ec Tab) 40 mg PO ACB [facility] Last Admin: 06/07/17 08:27 Dose: 40 mg Paroxetine HCl (Paxil) 20 mg PO DAILY [facility] Last Admin: 06/07/17 10:30 Dose: 20 mg Polyethylene Glycol (Miralax) 17 gm PO BID [facility] Last Admin: 06/07/17 17:55 Dose: 17 gm Physical Exam - Constitutional Appears: Non-toxic, Chronically Ill - Head Exam Head Exam: NORMAL INSPECTION - Neck Exam Neck exam: Negative for: Meningismus - Respiratory Exam Respiratory Exam: Decreased Breath Sounds - Cardiovascular Exam Cardiovascular Exam: +S1, +S2 - GI/Abdominal Exam GI & Abdominal Exam: Soft. absent: Tenderness Results - Vital Signs Recent Vital Signs: Last Vital Signs Temp 99.2 F 06/07/17 16:00 Pulse 81 06/07/17 16:00 Resp 19 06/07/17 16:00 BP 154/79 H 06/07/17 16:00 Pulse Ox 95 06/07/17 16:00 - Labs Result Diagrams: 06/05/17 07:00 06/05/17 07:00 Labs: Laboratory Results - last 24 hr 06/07/17 06/07/17 06/07/17 07:16 09:20 09:20 POC Glucose (mg/dL) 89 Iron 25 L TIBC 346 % Saturation 7 L Ferritin 20.5 06/07/17 06/07/17 06/07/17 11:17 16:40 21:39 POC Glucose (mg/dL) 144 H 111 H 135 H Iron TIBC % Saturation Ferritin Assessment & Plan - Assessment and Plan (Free Text) Plan: Assessment UTI with E. coli and E. faecalis CAD S/P PCI HTN history of Pulmonary embolism peripheral neuropathy Plan changed antibiotics to Zosyn and monitor clinically
--- NOTE | 2017-06-08 17:56 | DS ---
HISTORY OF PRESENT ILLNESS: The patient is 86 years old, seen and examined, sitting in chair. Denies any nausea or vomiting. No complaint of cough. No rectal bleeding. PHYSICAL EXAMINATION: VITAL SIGNS: The patient is afebrile, pulse 64, respirations 18, blood pressure 144/69. LUNGS: Bilateral fair airflow. No rhonchi or crackle. HEART: S1 and S2 audible. ABDOMEN: Soft. Nontender. No rebound. No guarding. NEUROLOGIC: The patient is awake, alert, oriented, communicative. LABORATORY EXAM: WBC 7.6, hemoglobin 9.7, hematocrit 30.2, platelet of 244. ASSESSMENT: 1. Status post lower gastrointestinal bleed. 2. Symptomatic anemia, status post 2 blood transfusions. 3. Escherichia coli urinary tract infection and Enterococcus faecalis urinary tract infection. Bilateral basal atelectasis. 4. Hyperlipidemia. 5. History of seizure disorder. PLAN: The patient is clinically stable. We will discharge her home on Cipro 250 b.i.d. for a week and she will resume her medication as prior to admission and she will follow up with her PMD. Alyx Arredondo MD
== END 2017-06-08 14:37 | disposition home or self-care (01) | DRG 378 ==
LOC: ED 12:04 → ERH 14:25 → 2RSO 17:53 → ERH 17:53 → 2RSO 18:30 → 3RNO 06-06 16:50
PROVIDERS: ADMIT Internal Medicine; ATTEND Internal Medicine
PROC: 30233N1 Transfusion of Nonautologous Red Blood Cells into Peripheral Vein, Percutaneous Approach (ICD-10-PCS; principal; 2017-06-04)
DX: K92.2 Gastrointestinal hemorrhage, unspecified (principal); N39.0 Urinary tract infection, site not specified; D50.0 Iron deficiency anemia secondary to blood loss (chronic); B96.20 Unspecified Escherichia coli [E. coli] as the cause of diseases classified elsewhere; B95.2 Enterococcus as the cause of diseases classified elsewhere; G40.909 Epilepsy, unspecified, not intractable, without status epilepticus; E78.5 Hyperlipidemia, unspecified; I25.10 Atherosclerotic heart disease of native coronary artery without angina pectoris; E11.40 Type 2 diabetes mellitus with diabetic neuropathy, unspecified; I10 Essential (primary) hypertension; K57.30 Diverticulosis of large intestine without perforation or abscess without bleeding; K29.70 Gastritis, unspecified, without bleeding; F32.9 Major depressive disorder, single episode, unspecified; Z86.711 Personal history of pulmonary embolism; Z79.82 Long term (current) use of aspirin; Z95.5 Presence of coronary angioplasty implant and graft; Z79.84 Long term (current) use of oral hypoglycemic drugs; Z87.891 Personal history of nicotine dependence

== ENCOUNTER 2018-03-12 01:50 | Inpatient (IN) | payer OTHER ==
[2018-03-12] MEDS ORDERED: Sodium Chloride 0.9% 1,000 ML IV STA (02:26)
--- NOTE | 2018-03-12 02:34 | ED PDOC ---
Arrival/HPI - General Chief Complaint: Dizziness/Lightheaded Time Seen by Provider: 03/12/18 02:09 Historian: Patient - History of Present Illness Narrative History of Present Illness (Text): 03/12/18 02:20 87 year old female, whose past medical history includes hypertension, hyperlipidemia, depression, gastritis, CAD s/p stents, Seizure disorder, diabetes presents to the emergency department via EMS stating approximately 4 ho urs ago she was going to put a glass of water in the refrigerator when she suddenly felt shaky and said her heart was beating fast. Patient then became dizzy and fell to the floor. When she woke up she could not get up on her own, so she called 911. Now currently states she feels a little dizzy, but otherwise denies any fever, chills, chest pain, shortness of breath, palpitations, shakiness, dyspnea on exertion, nausea, vomiting, diarrhea, urinary symptoms, back pain, neck pain, headache, or any other complaints. Patient is a poor historian but is A&O x3. PMD: Dr. Castro Time/Duration: 4-6 hours Symptom Onset: Sudden Symptom Course: Unchanged Activities at Onset: Light Context: Home Past Medical History - Provider Review Nursing Documentation Reviewed: Yes - Past History Past History: No Previous - Infectious Disease Hx of Infectious Diseases: None - Tetanus Immunization Tetanus Immunization: Unknown - Cardiac Hx Cardiac Disorders: Yes (mi cad) Hx Hypertension: Yes Hx Pacemaker: No Hx Peripheral Edema: Yes (right leg) Other/Comment: Stents x3 - Pulmonary Hx Respiratory Disorders: No (hx pe) Hx Asthma: No Hx Chronic Obstructive Pulmonary Disease (COPD): No Hx Emphysema: No - Neurological Hx Neurological Disorder: Yes (NEUROPATHY) HX Cerebrovascular Accident: No Hx Dementia: No Hx Seizures: Yes - HEENT Hx HEENT Disorder: Yes Hx Cataracts: Yes (B/L CATARACT WITH SX) - Renal Hx Renal Disorder: No - Endocrine/Metabolic Hx Endocrine Disorders: Yes Hx Diabetes Mellitus Type 2: Yes - Hematological/Oncological Hx Blood Disorders: No (blood transfusion) Hx Anemia: No Hx Cancer: No - Integumentary Hx Dermatological Disorder: Yes Other/Comment: reddened sacrum/buttocks-IASD - Musculoskeletal/Rheumatological Hx Musculoskeletal Disorders: Yes (CLOSED FX CLAVICLE,TOE FX.) Hx Falls: Yes (last week fx r great and 3rd toe) Hx Fractures: Yes (right great and 3rd toe fell last week) Hx Unsteady Gait: Yes (needs a walker) - Gastrointestinal Hx Gastrointestinal Disorders: Yes (CONSTIPATION,GASTRITIS,ESOPHAGITIS) - Genitourinary/Gynecological Hx Genitourinary Disorders: Yes Hx Incontinence: Yes - Psychiatric Hx Psychophysiologic Disorder: No Hx Depression: No Hx Emotional Abuse: No Hx Physical Abuse: No Hx Substance Use: No - Past Surgical History Past Surgical History: Unable to Obtain - Surgical History Hx Cardiac Catheterization: Yes Hx Coronary Stent: Yes (x3) Other/Comment: 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 - Anesthesia Hx Anesthesia: Yes Hx Anesthesia Reactions: Yes (VOMITING) Hx Malignant Hyperthermia: No - Suicidal Assessment Feels Threatened In Home Enviroment: No Family/Social History - Physician Review Nursing Documentation Reviewed: Yes Family/Social History: No Known Family HX Smoking Status: Former Smoker Hx Alcohol Use: Yes (h/o) Hx Substance Use: No Hx Substance Use Treatment: No Allergies/Home Meds Allergies/Adverse Reactions: Allergies No Known Allergies Allergy (Verified 03/12/18 02:01) Home Medications: Home Meds Medication Instructions Recorded Confirmed RX: Aspirin [Aspir 81] 81 mg PO DAILY 08/08/11 06/04/17 RX: [place] Oil/[place]-3 Fatty Acids 500 mg PO DAILY 08/08/11 06/04/17 [Fish Oil 500 mg Softgel] RX: Vitamin B Complex & Vitamin C 1 tab PO DAILY 08/08/11 06/04/17 [Strovite] RX: Colesevelam HCl [Welchol] 625 mg PO BID 06/04/17 06/04/17 RX: Lamotrigine [Lamictal Xr] 25 mg PO DAILY 06/04/17 06/04/17 RX: Lisinopril [Zestril] 20 mg PO DAILY 06/04/17 06/04/17 RX: Omeprazole 20 mg PO DAILY 06/04/17 06/04/17 RX: PARoxetine [Paxil] 20 mg PO DAILY 06/04/17 06/04/17 RX: Simvastatin [Zocor] 20 mg PO DAILY 06/04/17 06/04/17 RX: amLODIPine [Norvasc] 10 mg PO DAILY 06/04/17 06/04/17 Review of Systems - Physician Review All systems were reviewed & negative as marked: Yes - Review of Systems Constitutional: absent: Fevers, Other (Chills) Respiratory: absent: SOB Cardiovascular: Palpitations, Syncope. absent: Chest Pain Gastrointestinal: absent: Diarrhea, Nausea, Vomiting Genitourinary Female: absent: Dysuria, Frequency, Hematuria Musculoskeletal: absent: Back Pain, Neck Pain Neurological: Dizziness. absent: Headache Physical Exam Vital Signs Reviewed: Yes Vital Signs Pulse Resp BP Pulse Ox 03/12/18 02:00 87 18 131/69 96 Blood Pressure: Normal Pulse: Regular Respiratory Rate: Normal Appearance: Positive for: Well-Appearing, Non-Toxic, Comfortable Pain Distress: None Mental Status: Positive for: Alert and Oriented X 3 Finger Stick Blood Glucose: 119 - Systems Exam Head: Present: Atraumatic, Normocephalic Pupils: Present: PERRL Extroacular Muscles: Present: EOMI Conjunctiva: Present: Normal Mouth: Present: Moist Mucous Membranes Neck: Present: Normal Range of Motion Respiratory/Chest: Present: Clear to Auscultation, Good Air Exchange. No: Respiratory Distress, Accessory Muscle Use Cardiovascular: Present: Regular Rate and Rhythm, Normal S1, S2. No: Murmurs Abdomen: No: Tenderness, Distention, Peritoneal Signs Back: Present: Normal Inspection Upper Extremity: Present: Normal Inspection. No: Cyanosis, Edema Lower Extremity: Present: Normal Inspection. No: Edema Neurological: Present: GCS=15, CN II-XII Intact, Speech Normal Skin: Present: Warm, Dry, Normal Color. No: Rashes Psychiatric: Present: Alert, Oriented x 3, Normal Insight, Normal Concentration Medical Decision Making ED Course and Treatment: 03/12/18 02:26 Impression: 87 year old female presents complaining of suddenly feeling shaky and palpitations then became dizziness and fell to the floor approximately 3-4 hours ago. Plan: -- CT head w/o contrast -- EKG -- Labs -- Chest X-ray -- IV Fluids -- Reassess and disposition Prior Visits: Notes and results from previous visits were reviewed. Progress Notes: 03/12/18 02:52 EKG shows NSR at 90 BPM with normal axis, normal intervals, t-wave inversions in ferior lateral leads, no ST elevation. Interpreted by me. CT scan of the head. Electronically signed on Mar 12, 2018 3:42:12 AM EST by: Judy Gold M.D IMPRESSION: 1. Age-appropriate cerebellar and cerebral atrophy. 2. Mild chronic microvascular disease. 3. No evidence of acute intracranial pathology. 03/12/18 04:10 CXR Impression: As read by me, bilateral patchy opacities. Will admit patient for further evaluation on syncope. 03/12/18 04:[address] Arredondo who is aware and agrees with the plan. Accepts patient into her service. - Lab Interpretations I have reviewed the lab results: Yes - RAD Interpretation Radiology Orders: 03/12/18 02:26 HEAD W/O CONTRAST [CT] Stat CHEST PORTABLE [RAD] Stat Golf Course Keeper: ED Physician, Radiologist - EKG Interpretation Interpreted by ED Physician: Yes Type: 12 lead EKG - Medication Orders Current Medication Orders: Sodium Chloride (Sodium Chloride 0.9%) 1,000 mls @ 999 mls/hr IV .[id number] STA Stop: 03/12/18 03:26 - Scribe Statement The provider has reviewed the documentation as recorded by the Meghan Loco Provider Scribe Attestation: All medical record entries made by the Scribe were at my direction and personally dictated by me. I have reviewed the chart and agree that the record accurately reflects my personal performance of the history, physical exam, medical decision making, and the department course for this patient. I have also personally directed, reviewed, and agree with the discharge instructions and disposition. Disposition/Present on Arrival - Present on Arrival Any Indicators Present on Arrival: No History of DVT/PE: No History of Uncontrolled Diabetes: No Urinary Catheter: No History of Decub. Ulcer: No History Surgical Site Infection Following: None - Disposition Have Diagnosis and Disposition been Completed?: Yes Diagnosis: Syncope Disposition: HOSPITALIZED Disposition Time: 04:38 Condition: STABLE
[2018-03-12 02:49] LABS: BLOOD UREA NITROGEN 19 mg/dL (7-21); CALCIUM 9.6 mg/dL (8.4-10.5); GFR NON-AFRICAN AMERICAN 59
[2018-03-12 03:00] LABS: TROPONIN I < 0.01 ng/mL
[2018-03-12 03:08] LABS: BASO # 0.03 K/mm3 (0.0-2.0); BASO % 0.5 % (0.0-3.0); EOS # 0.1 (0.0-0.7); EOS % 1.4 % (1.5-5.0); GRAN # 3.87 (1.4-6.5); GRAN % 61.3 % (50.0-68.0); HEMOGLOBIN 8.5 g/dL (12.0-16.0); LYMPH # 1.9 (1.2-3.4); LYMPH % 29.7 % (22.0-35.0); MEAN CELL VOLUME 76.8 fl (80.0-105.0); MEAN CORPUSCULAR HEMOGLOBIN 22.7 pg (25.0-35.0); MEAN CORPUSCULAR HGB CONC 29.5 g/dl (31.0-37.0); MEAN PLATELET VOLUME 10.2 fl (7.0-11.0); MONO # 0.5 (0.1-0.6); MONO % 7.1 % (1.0-6.0); RBC 3.75 10^6/uL (3.5-6.1); RED CELL DISTRIBUTION WIDTH 17.1 % (11.5-14.5); WHITE BLOOD COUNT 6.3 10^3/uL (4.5-11.0)
[2018-03-12 06:12] VITALS: BMI 21.4
--- NOTE | 2018-03-12 09:25 | CT ---
Date of service: 03/12/2018 PROCEDURE: CT HEAD WITHOUT CONTRAST. HISTORY: dizziness COMPARISON: 06/04/2017 TECHNIQUE: Axial computed tomography images were obtained through the head/brain without intravenous contrast. Radiation dose: Total exam DLP = 791.24 mGy-cm. This CT exam was performed using one or more of the following dose reduction techniques: Automated exposure control, adjustment of the mA and/or kV according to patient size, and/or use of iterative reconstruction technique. FINDINGS: HEMORRHAGE: No intracranial hemorrhage. BRAIN: No mass effect or edema. Mild chronic microvascular changes. Mild atrophy VENTRICLES: Unremarkable. No hydrocephalus. CALVARIUM: Unremarkable. PARANASAL SINUSES: Unremarkable as visualized. No significant inflammatory changes. MASTOID AIR CELLS: Unremarkable as visualized. No inflammatory changes. OTHER FINDINGS: None. IMPRESSION: No acute intracranial findings
--- NOTE | 2018-03-12 09:45 | RAD ---
Date of service: 03/12/2018 HISTORY: palpitations COMPARISON: No prior. FINDINGS: LUNGS: No active pulmonary disease. PLEURA: No significant pleural effusion identified, no pneumothorax apparent. CARDIOVASCULAR: Aortic calcification Normal cardiac size. No pulmonary vascular congestion. OSSEOUS STRUCTURES: No significant abnormalities. VISUALIZED UPPER ABDOMEN: Normal. OTHER FINDINGS: None. IMPRESSION: No active disease.
[2018-03-12] MEDS ORDERED: LAMOTRIGINE 25 MG PO SCH (10:45)
[2018-03-12] MEDS ORDERED: Non Formulary Medication (Simvastatin [Zocor] 20 MG) PO SCH (10:45)
[2018-03-12 12:15] LABS: URINE BILIRUBIN NEGATIVE (NEGATIVE); URINE BLOOD TRACE-LYSED (NEGATIVE); URINE GLUCOSE (UA) NEGATIVE (NEGATIVE); URINE LEUKOCYTE ESTERASE MODERATE Leu/uL (NEGATIVE); URINE PROTEIN NEGATIVE mg/dL (<30 mg/dL); URINE UROBILINOGEN 0.2 E.U./dL (<1 E.U./dL)
[2018-03-12 12:18] LABS: URINE APPEARANCE SL CLOUDY (CLEAR); URINE COLOR LIGHT YELLOW (YELLOW)
[2018-03-12 12:33] LABS: URINE AMORPHOUS SEDIMENT SMALL /hpf; URINE BACTERIA MANY /hpf; URINE WBC 25 - 30 /hpf (0-6)
[2018-03-12] MEDS: cefTRIAXone 1 gm 1 GM/100 ML BAG IVPB SCH (13:11)
--- NOTE | 2018-03-12 13:57 | CP.PCM.APN ---
Subjective - Date & Time of Evaluation Date of Evaluation: 03/12/18 Time of Evaluation: 10:45 - Subjective Subjective: Pt. seen and examined at bedside, pt. s/p fall, denied any shortness of breath, palpitations, dizziness at this time. Denied any dysuria, denied abdominal pain. Review of Systems - Constitutional Constitutional: Frequent Falls - EENT Eyes: absent: As Per HPI, Blind Spots, Blurred Vision, Change in Vision, Decreased Night Vision, Diplopia, Discharge, Dry Eye, Exophthalmos, Floaters, Irritation, Itchy Eyes, Loss of Peripheral Vision, Pain, Photophobia, Requires Corrective Lenses, Sees Flashes, Spots in Vision, Tunnel Vision, Other Visual Disturbances, Loss of Vision, Other Ears: absent: As Per HPI, Decreased Hearing, Ear Discharge, Ear Pain, Tinnitus, Abnormal Hearing, Disequilibrium, Dizziness, Other Nose/Mouth/Throat: absent: As Per HPI, Epistaxis, Nasal Congestion, Nasal Discharge, Nasal Obstruction, Nasal Trauma, Nose Pain, Post Nasal Drip, Sinus Pain, Sinus Pressure, Bleeding Gums, Change in Voice, Dental Pain, Dry Mouth, Dysphagia, Halitosis, Hoarsness, Lip Swelling, Mouth Lesions, Mouth Pain, Odynophagia, Sore Throat, Throat Swelling, Tongue Swelling, Facial Pain, Neck Pain, Neck Mass, Other - Breasts Breasts: absent: As Per HPI, Change in Shape, Mass, Pain, Nipple Discharge, Nipple Inversion, Skin Changes, Swelling, Other - Cardiovascular Cardiovascular: Palpitations - Respiratory Respiratory: absent: As Per HPI, Cough, Dyspnea, Hemoptysis, Dyspnea on Exertion, Wheezing, Snoring, Stridor, Pain on Inspiration, Chest Congestion, Excessive Mucous Production, Change in Mucous Color, Pain with Coughing, Other - Gastrointestinal Gastrointestinal: absent: As Per HPI, Abdominal Pain, Belching, Bloating, Change in Bowel Habits, Change in Stool Character, Coffee Ground Emesis, Constipation, Cramping, Diarrhea, Dyspepsia, Dysphagia, Early Satiety, Excessive Flatus, Fecal Incontinence, Heartburn, Hematemesis, Hematochezia, Loose Stools, Melena, Nausea, Odynophagia, Temesmus, Vomiting, Other - Genitourinary Genitourinary: absent: As Per HPI, Change in Urinary Stream, Difficulty Urinating, Dysuria, Flank Pain, Hematuria, Pyuria, Nocturia, Urinary Incontine nce, Urinary Frequency, Urinary Hesitance, Urinary Urgency, Voiding Freq/Small Amts, Freq UTI, Hx Renal/Bladder Calculi, Hx /Renal Surgery, Bladder Distension, Other - Reproductive: Female Reproductive:Female: absent: As Per HPI, Amenorrhea, Amenorrhea/ Control, Currently Menstual, Cycle <21 Days, Cycle >35 Days, Cycle Variable, Menses 1-7 Days, Menses >/= 8 Days, Menses Variable, Cycle > 4 Weeks Between, No Menses for 6 Months, Heavy Menses, Light Menses, Normal Menses, Spotting Between Cycles, S/P Hysterectomy, Menopausal, Post Menopausal, Premenarche, Abnormal Vaginal Bleeding, Dysmenorrhea, Dyspareunia, Genital Lesions, Genital Pruritis, Pelvic Pain, Prolapse Symptoms, Sexual Dysfunction, Vaginal Discharge, Vaginal Dryness, Vaginal Odor, Vaginal Pruritis, Other - Menstruation Menstruation: absent: As Per HPI, Amenorrhea, Amenorrhea/ Control, Currently Menstual, Cycle <21 Days, Cycle >35 Days, Cycle Variable, Menses 1-7 Days, Menses >/= 8 Days, Menses Variable, Cycle > 4 Weeks Between, No Menses for 6 Months, Heavy Menses, Light Menses, Normal Menses, Spotting Between Cycles, S/P Hysterectomy, Menopausal, Post Menopausal, Premenarche, Abnormal Vaginal Bleeding, Dysmenorrhea, Other - Integumentary Integumentary: absent: As Per HPI, Acne, Alopecia, Bleeding Lesions, Change in Hair, Change in Nails, Change in Pigmentation, Changing Lesions, Dry Skin, Erythema, Furuncle, Hirsutism, Lesions, New Lesions, Non-Healing Lesions, Photosensitivity, Pruritus, Rash, Skin Pain, Skin Ulcer, Sores, Striae, Swelling, Unusual Bruising, Wounds, Jaundice, Other - Neurological Neurological: absent: As Per HPI, Abnormal Gait, Abnormal Hearing, Abnormal Movements, Abnormal Speech, Behavioral Changes, Burning Sensations, Confusion, Convulsions, Disequilibrium, Dizziness, Numbness, Focal Weakness, Frequent Falls, Headaches, Lack of Coordination, Loss of Vision, Memory Loss, Paresthesias, Radicular Pain, Restless Legs, Sensory Deficit, Syncope, Tingling, Tremor, Vertigo, Weakness, Other Visual Disturbances, Other - Psychiatric Psychiatric: absent: As Per HPI, Abnormal Sleep Pattern, Anhedonia, Anxiety, Auditory Hallucinations, Behavioral Changes, Change in Appetite, Change in L ibido, Confusion, Depression, Difficulty Concentrating, Hallucinations, Homicidal Ideation, Hopelessness, Irritability, Memory Loss, Mood Swings, Panic Attacks, Paranoia, Suicidal Ideation, Visual Hallucinations, Tactile Hallucinations, Other - Endocrine Endocrine: absent: As Per HPI, Change in Body Appearance, Change in Libido, Cold Intolorance, Deepening of Voice, Excessive Sweating, Fatigue, Flushing, Heat Intolorance, Increase in Ring/Shoe/Hat Size, Palpitations, Polydipsia, Polyphagia, Polyuria, Other Objective - Vital Signs/Intake and Output Vital Signs (last 24 hours): Temp Pulse Resp BP Pulse Ox 98.1 F 84 18 146/81 98 03/12/18 06:00 03/12/18 06:00 03/12/18 06:04 03/12/18 10:49 03/12/18 06:00 - Medications Medications: Current Medications Amlodipine Besylate (Norvasc) [address] [facility] Last Admin: 03/12/18 10:49 Dose: 10 mg Aspirin (Ecotrin) [address] [facility] Last Admin: 03/12/18 10:49 Dose: 81 mg Atorvastatin Calcium (Lipitor) [address] [facility] Ceftriaxone Sodium (Rocephin 1 Gram Ivpb) 1 gm in 100 mls @ 100 mls/hr IVPB DAILY [facility]; Protocol Stop: 03/16/18 10:59 Last Admin: 03/12/18 13:11 Dose: 100 mls/hr Lisinopril (Zestril) [address] [facility] Last Admin: 03/12/18 10:49 Dose: 20 mg Lamotrigine [ Lamictal Xr] 25 Mg (Home) [address] [facility] Paroxetine HCl (Paxil) [address] [facility] Last Admin: 03/12/18 10:49 Dose: 20 mg - Labs Labs: 03/12/18 02:10 03/12/18 02:10 - Constitutional Appears: Well, Non-toxic - Head Exam Head Exam: NORMAL INSPECTION, NORMOCEPHALIC - Eye Exam Eye Exam: Normal appearance - ENT Exam ENT Exam: Mucous Membranes Moist, Normal Exam - Neck Exam Neck Exam: Full ROM, Normal Inspection - Respiratory Exam Respiratory Exam: Clear to Ausculation Bilateral, NORMAL BREATHING PATTERN - GI/Abdominal Exam GI & Abdominal Exam: Soft, Normal Bowel Sounds - Rectal Exam Rectal Exam: Deferred - Exam Exam: absent: Circumcision, NORMAL INSPECTION, Scrotal Swelling, Testicular Tenderness, Uretheral Discharge, Testicular Vertical Lie, Bladder Distension External exam: absent: Ecchymosis, Erythema, Lacerations, Lesions, NORMAL EXTERNAL EXAM, Swelling Speculum exam: absent: Cervical Discharge, Erythema, Foreign Body, Laceration, NORMAL SPECULUM EXAM, Tissue, Vaginal Bleeding, Vaginal Discharge Bimanual exam: absent: Adenexal Mass, Adnexal, Cervical Motion Tendernes, NORMAL BIMANUAL EXAM, Uterine Enlargement, Uterine Tenderness - Extremities Exam Extremities Exam: Full ROM - Back Exam Back Exam: tenderness - Neurological Exam Neurological Exam: Awake, Oriented x3 - Skin Skin Exam: Dry, Intact, Normal Color, Warm Assessment and Plan - Assessment and Plan (Free Text) Assessment: Assessment: mpression: 87 year old female presents complaining of suddenly feeling shaky and palpitations then became dizziness and fell to the floor , admitted with near syncope. Plan: 1. Near syncope neuro consult pending, carotid us pending, check orthostatic vs. 2. Pos. UA- Urine cx results pending, Iv antibx ordered. pt eval pending. will continue to monitor and follow closely
--- NOTE | 2018-03-12 15:50 | CARD ---
APPROVED REPORT Date of service: 03/12/2018 EKG Measurement Heart [id number] <Conclusion> Normal sinus rhythm T wave abnormality, consider inferior ischemia T wave abnormality, consider anterolateral ischemia Abnormal ECG
--- NOTE | 2018-03-12 20:56 | HP ---
DATE OF EXAM: 03/12/2015 HISTORY OF PRESENT ILLNESS: This is an 87-year-old female. The patient states she woke up this morning and went to grab something from the fridge, her left knee gave in and she fell, after that she was unable to get up, she crawled to the door, neighbor were able to get in and ambulance was called, and she was brought to emergency. She states she tried to get up herself, but she was unable to get up. The patient denies she does not have any chest pain or dizziness. She did have some palpitation and felt weak and shaky, but she is definite about it that she ever lost consciousness. No history of fever or chills. No nausea or vomiting. No diarrhea. PAST MEDICAL HISTORY: 1. Significant for hypertension. 2. Hyperlipidemia. 3. History of gastritis. 4. Coronary artery disease, status post angioplasty. 5. Seizure disorder. 6. History of diabetic neuropathy. 7. Non-insulin dependent diabetes. ALLERGIES: SHE IS NOT ALLERGIC TO ANY MEDICATION. MEDICATIONS AT HOME: The patient is on amlodipine 10 mg daily, Zocor 20 mg daily, Paxil 20 mg daily, lisinopril 20 mg daily. SOCIAL HISTORY: She lives alone. She has a daughter who lives outside the town. She used to be a heavy smoker in the past, quit 40 years ago. PHYSICAL EXAMINATION: GENERAL: Complain of left knee pain. She is otherwise, she is awake, alert, oriented, and communicative. VITAL SIGNS: She is afebrile, pulse 84, respirations 20, and blood pressure 146/81. LUNGS: Bilateral fair airflow. No rhonchi or crackle. HEART: S1 and S2 audible. ABDOMEN: Soft and nontender. No rebound. No guarding. NEUROLOGICAL: The patient is awake, alert, oriented, and communicative. EXTREMITIES: Bilateral leg, no edema. LABORATORY DATA: WBC 6.3, hemoglobin 8.5, hematocrit 28.8, and platelet count 252. Chemistry; sodium 141, potassium 3.9, chloride 108, carbon dioxide 25, BUN 19, creatinine 0.9, and blood sugar of 120. Urine positive for nitrates, leukocyte moderate. IMPRESSION: 1. Status post fall, only loss of balance. 2. Pyuria. 3. History of seizure disorder. 4. Non-insulin dependent diabetes. 5. Hypertension. 6. Knee osteoarthritis. 7. Deconditioning and difficulty walking. PLAN: Doppler, awaiting neuro evaluation, and physical therapy evaluation has been requested. We will resume her medications, in particularly start her on Rocephin until we get the cultures back. Alyx Arredondo MD
[2018-03-13 09:22] LABS: BASO # 0.03 K/mm3 (0.0-2.0); BASO % 0.6 % (0.0-3.0); EOS # 0.2 (0.0-0.7); EOS % 3.3 % (1.5-5.0); HEMOGLOBIN 9.3 g/dL (12.0-16.0); LYMPH # 1.9 (1.2-3.4); LYMPH % 35.2 % (22.0-35.0); MEAN CELL VOLUME 77.1 fl (80.0-105.0); MEAN CORPUSCULAR HEMOGLOBIN 22.9 pg (25.0-35.0); MEAN CORPUSCULAR HGB CONC 29.7 g/dl (31.0-37.0); MEAN PLATELET VOLUME 10.1 fl (7.0-11.0); MONO # 0.4 (0.1-0.6); MONO % 6.9 % (1.0-6.0); RBC 4.06 10^6/uL (3.5-6.1); RED CELL DISTRIBUTION WIDTH 17.2 % (11.5-14.5); WHITE BLOOD COUNT 5.4 10^3/uL (4.5-11.0)
[2018-03-13] MEDS: LAMOTRIGINE 25 MG PO SCH ×2 (09:37→10:42)
[2018-03-13] MEDS: cefTRIAXone 1 gm 1 GM/100 ML BAG IVPB SCH (09:38)
[2018-03-13 09:50] LABS: BLOOD UREA NITROGEN 11 mg/dL (7-21); CALCIUM 9.6 mg/dL (8.4-10.5); GFR NON-AFRICAN AMERICAN > 60
[2018-03-13] MEDS ORDERED: Oxycodone/Acetaminophen 5/325 mg Tab PO PRN (11:13)
--- NOTE | 2018-03-13 15:04 | PN ---
DATE: 03/13/2018 SUBJECTIVE: The patient is 87 years old, seen and examined, awake and alert, able to communicate, it is better, did not get evaluated yet. Does not complain of any nausea or vomiting. PHYSICAL EXAMINATION: VITAL SIGNS: She is afebrile, pulse 81, respirations 20, and blood pressure 158/65. LUNGS: Bilateral fair airflow. No rhonchi or crackle. HEART: S1 and S2 audible. ABDOMEN: Soft, nontender. No rebound, no guarding. NEUROLOGIC: The patient is awake, alert, oriented, able to communicate. Moves all extremities. EXTREMITIES: Bilateral legs no edema. LABORATORY EXAM: WBC 5.4, hemoglobin 9.3, hematocrit 31.3, and platelet 248. Chemistry: Sodium 141, potassium 3.7, chloride 111, CO2 of 25, BUN 11, creatinine 0.6, and blood sugar 126. ASSESSMENT: 1. Status post fall secondary to imbalance. 2. History of hypertension. 3. Hyperlipidemia. 4. Peptic ulcer disease. 5. Coronary artery disease status post angioplasty. 6. History of seizure disorder. PLAN: We will get physical therapy evaluation. TCU evaluation is accepted, will be transferred to TCU. The patient also was found to have pyuria, urine cultures are pending. We will empirically keep on Rocephin. We will follow up. Alyx Arredondo MD
[2018-03-13] MEDS ORDERED: POLYETHYLENE GLYCOL 3350 17 GM/Dose PACKET PO ONE ×2 (16:02→16:03)
--- NOTE | 2018-03-13 21:43 | US ---
PROCEDURE: Bilateral carotid artery duplex ultrasound HISTORY: Carotid stenosis PHYSICIAN(S): John Mahoney MD. TECHNIQUE: Duplex sonography and color-flow Doppler were used to evaluate the carotid bifurcations and limited segments of the vertebral arteries bilaterally. FINDINGS: There is there is diffuse moderate to extensive echogenic plaque noted at the carotid bifurcations bilaterally. The peak systolic velocity in the proximal right internal carotid artery is 123 cm/sec. This corresponds to a 40-59 percent proximal right ICA stenosis. Severely elevated systolic velocities are noted in the proximal right external carotid artery. There is antegrade flow in the right vertebral artery. The origin of the left internal carotid artery is obscured by shadowing plaque. The peak systolic velocity in the proximal left internal carotid artery is 281 cm/sec. The end-diastolic velocity at this position is 56 cm/sec. This corresponds to a 70 percent proximal left ICA stenosis. Moderately elevated systolic velocities are noted in the proximal left external carotid artery. There is antegrade flow in the left vertebral artery. IMPRESSION: 1. 70 percent proximal left ICA stenosis. The origin of the left ICA is obscured by shadowing plaque. 2. 40-59 percent proximal right ICA stenosis 3. Antegrade flow in both vertebral arteries.
[2018-03-14 10:20] LABS: BASO # 0.02 K/mm3 (0.0-2.0); BASO % 0.4 % (0.0-3.0); EOS # 0.2 (0.0-0.7); EOS % 3.5 % (1.5-5.0); HEMOGLOBIN 8.7 g/dL (12.0-16.0); LYMPH % 35.8 % (22.0-35.0); MEAN CELL VOLUME 77.4 fl (80.0-105.0); MEAN CORPUSCULAR HEMOGLOBIN 22.8 pg (25.0-35.0); MEAN CORPUSCULAR HGB CONC 29.5 g/dl (31.0-37.0); MEAN PLATELET VOLUME 9.9 fl (7.0-11.0); MONO # 0.4 (0.1-0.6); MONO % 6.3 % (1.0-6.0); RBC 3.81 10^6/uL (3.5-6.1); RED CELL DISTRIBUTION WIDTH 17.2 % (11.5-14.5); WHITE BLOOD COUNT 5.7 10^3/uL (4.5-11.0)
[2018-03-14] MEDS: LAMOTRIGINE 25 MG PO SCH (10:25)
[2018-03-14] MEDS: cefTRIAXone 1 gm 1 GM/100 ML BAG IVPB SCH (10:25)
[2018-03-14 10:37] LABS: BLOOD UREA NITROGEN 18 mg/dL (7-21); CALCIUM 9.6 mg/dL (8.4-10.5); GFR NON-AFRICAN AMERICAN > 60
[2018-03-14] MEDS: POLYETHYLENE GLYCOL 3350 17 GM/Dose PACKET PO SCH ×2 (12:37→18:02)
--- NOTE | 2018-03-14 12:52 | RAD ---
Date of service: 03/13/2018 HISTORY: assess for constipation/stool impaction of colon COMPARISON: None available. FINDINGS: BOWEL: Mild constipation is noted more prominent in the left colon. BONES: Degenerative changes and mild diffuse demineralization of the osseous structures. OTHER FINDINGS: Diffuse atherosclerotic calcification in the abdominal aorta. IMPRESSION: Mild constipation.
--- NOTE | 2018-03-14 12:59 | PN ---
DATE: 03/14/2018 SUBJECTIVE: The patient has no complaints of any chest pain. No shortness of breath or headaches. She was able to sleep well last night. She has been eating without difficulty. PHYSICAL EXAMINATION: VITAL SIGNS: Temperature is 97.7, pulse of 68, blood pressure is 146/74, respirations 20. GENERAL: The patient is lying in bed, flat, comfortable. HEENT: No oral lesion. Anicteric sclerae. Moist mucosa. NECK: No JVD, adenopathy, or thyromegaly. CARDIOVASCULAR: S1 and S2, regular. No murmurs, rubs, or gallops. LUNGS: Clear to auscultation bilaterally. No wheeze, rales, or rhonchi. ABDOMEN: Bowel sounds are positive, soft, nontender and nondistended. EXTREMITIES: No cyanosis, clubbing or edema. LABS: White count of 5.7, hemoglobin 8.7. Creatinine 0.7. ASSESSMENT: 1. Constipation. 2. Fall. 3. Hypertension. 4. Dyslipidemia. 5. Peptic ulcer disease. 6. Coronary artery disease status post angioplasty. 7. Seizure disorder. PLAN: The patient is currently comfortable. She had an x-ray of the abdomen yesterday. I did review the x-ray myself. She has mild constipation. The back shows degenerative changes. She is on Lamictal for her seizure disorder. She is on MiraLax for constipation. She is going to continue with paroxetine. She is on pain medications with Percocet. She is on Rocephin for antibiotics. She is on lisinopril for her hypertension. She has urine cultures that are positive for Klebsiella which is fairly sensitive. She is waiting to go to Transitional Care Unit. She is tolerating her regular diet. Jamil Oliva MD
[2018-03-15 08:32] VITALS: TEMP 97.8
[2018-03-15] MEDS: POLYETHYLENE GLYCOL 3350 17 GM/Dose PACKET PO SCH (09:06)
[2018-03-15] MEDS: LAMOTRIGINE 25 MG PO SCH (09:08)
[2018-03-15 09:13] LABS: BASO # 0.03 K/mm3 (0.0-2.0); BASO % 0.5 % (0.0-3.0); EOS # 0.2 (0.0-0.7); EOS % 3.7 % (1.5-5.0); HEMOGLOBIN 9.6 g/dL (12.0-16.0); LYMPH # 1.8 (1.2-3.4); LYMPH % 31.4 % (22.0-35.0); MEAN CELL VOLUME 76.9 fl (80.0-105.0); MEAN CORPUSCULAR HEMOGLOBIN 22.4 pg (25.0-35.0); MEAN CORPUSCULAR HGB CONC 29.2 g/dl (31.0-37.0); MEAN PLATELET VOLUME 9.9 fl (7.0-11.0); MONO # 0.6 (0.1-0.6); MONO % 10.7 % (1.0-6.0); RBC 4.28 10^6/uL (3.5-6.1); WHITE BLOOD COUNT 5.7 10^3/uL (4.5-11.0)
[2018-03-15 09:40] LABS: BLOOD UREA NITROGEN 22 mg/dL (7-21); CALCIUM 9.7 mg/dL (8.4-10.5); GFR NON-AFRICAN AMERICAN > 60
[2018-03-15] MEDS ORDERED: Cefpodoxime (Vantin) 200 mg Tab PO SCH (10:00)
[2018-03-15 12:07] VITALS: BP 133/67; PULSE 81; RESP 18; O2SAT 96
--- NOTE | 2018-03-16 01:33 | DS ---
HISTORY OF PRESENT ILLNESS: The patient is an 87-year-old, seen and examined. The patient lives alone by herself. The patient states she usually manages herself her affairs. She was walking towards the fridge to put water in the fridge, but her left knee given and she fell, she was having difficulty getting up. She was able to call and open the door and neighbor came in while she was yelling for help, so ambulance was called and the patient was brought to emergency room. The patient has Neuro workup done, so far unremarkable. Carotid Doppler is negative. CT scan is negative for CVA. The patient is deconditioned and have difficulty walking, so she is being transferred to TCU today. PHYSICAL EXAMINATION: GENERAL: She is awake, alert, oriented, and communicative. VITAL SIGNS: The patient is afebrile, pulse 82, respirations 20, and blood pressure 150/70. LUNGS: Bilateral fair airflow. No rhonchi or crackle. HEART: S1 and S2 audible. ABDOMEN: Soft, obese, and nontender. No rebound. No guarding. NEUROLOGIC: She is awake, alert, oriented, communicative, and ambulatory with assistance. EXTREMITIES: Bilateral leg no edema. LABORATORY DATA: WBC 5.7, hemoglobin 9.6, hematocrit 32.9, and platelets 261. Chemistry; sodium 140, potassium 4.4, chloride 108, CO2 of 27, BUN 22, creatinine 0.6, and blood sugar 134. Urine positive for Klebsiella pneumoniae, sensitive to Rocephin. ASSESSMENT: 1. Status post near syncope, status post fall. 2. Klebsiella pneumoniae urinary tract infection. 3. History of seizure disorder. 4. Hyperlipidemia. 5. Hypertension. PLAN: The patient was discharged to TCU. Continue antibiotics. She will get physical therapy in TCU and followup the patient in a.m. Alyx Arredondo MD
== END 2018-03-15 13:11 | DRG 690 ==
LOC: ED 01:50 → ERH 04:33 → 3RNO 05:26
PROVIDERS: ADMIT Internal Medicine; ATTEND Internal Medicine
DX: N39.0 Urinary tract infection, site not specified (principal); R55 Syncope and collapse; R42 Dizziness and giddiness; R00.2 Palpitations; I10 Essential (primary) hypertension; R26.81 Unsteadiness on feet; I25.10 Atherosclerotic heart disease of native coronary artery without angina pectoris; K29.70 Gastritis, unspecified, without bleeding; W18.30XA Fall on same level, unspecified, initial encounter; E11.40 Type 2 diabetes mellitus with diabetic neuropathy, unspecified; G40.909 Epilepsy, unspecified, not intractable, without status epilepticus; K59.00 Constipation, unspecified; B96.1 Klebsiella pneumoniae [K. pneumoniae] as the cause of diseases classified elsewhere; E78.5 Hyperlipidemia, unspecified; K27.9 Peptic ulcer, site unspecified, unspecified as acute or chronic, without hemorrhage or perforation; M17.10 Unilateral primary osteoarthritis, unspecified knee; Z79.899 Other long term (current) drug therapy; Z86.711 Personal history of pulmonary embolism; Z87.891 Personal history of nicotine dependence; Z95.5 Presence of coronary angioplasty implant and graft; Z86.69 Personal history of other diseases of the nervous system and sense organs; Z98.42 Cataract extraction status, left eye; Z98.41 Cataract extraction status, right eye; Z87.81 Personal history of (healed) traumatic fracture; Z91.81 History of falling

== ENCOUNTER 2018-03-15 13:14 | Inpatient (IN) | payer OTHER ==
[2018-03-15] MEDS ORDERED: Oxycodone/Acetaminophen 5/325 mg Tab PO PRN (13:54)
[2018-03-15 16:42] VITALS: RESP 18
[2018-03-15] MEDS: POLYETHYLENE GLYCOL 3350 17 GM/Dose PACKET PO SCH (17:53)
[2018-03-15] MEDS: Cefpodoxime (Vantin) 200 mg Tab PO SCH (21:30)
[2018-03-15 23:36] VITALS: BMI 20.6
[2018-03-15] MEDS ORDERED: Influenza Vaccine 60 mcg/0.5 mL SYR (4YR UP) IM ONE (23:36)
[2018-03-15] MEDS ORDERED: Pneumococcal 23-Valent Vaccine IM ONE (23:36)
[2018-03-16] MEDS: Cefpodoxime (Vantin) 200 mg Tab PO SCH ×2 (10:05→17:32)
[2018-03-16] MEDS: POLYETHYLENE GLYCOL 3350 17 GM/Dose PACKET PO SCH ×2 (10:06→17:32)
--- NOTE | 2018-03-16 21:48 | HP ---
DATE OF EXAM: 03/16/2018 HISTORY OF PRESENT ILLNESS: The patient is an 87-year-old, came to emergency room after she fell. The patient says she was walking towards the fridge to take some cold water, her left knee gave in and she fell, she was able to crawl to the door, and she yelled for help and her neighbor called ambulance, was brought to emergency room. The patient has neuro workup done, was unremarkable. The patient lives by herself and has home health aide. Denies any chest pain, no shortness of breath. No nausea, vomiting, or diarrhea. The patient has workup done. Neurological workup is negative, however, she was found to have UTI, Klebsiella pneumonia, UTI and has being treated for that. PAST MEDICAL HISTORY: Significant for; 1. Seizure disorder. 2. Mild dementia. 3. Hypertension. 4. Hyperlipidemia. 5. History of depression. ALLERGIES: SHE IS NOT ALLERGIC TO ANY MEDICATION. MEDICATION AT HOME: She is on lamotrigine. She is on amlodipine, simvastatin 20 mg daily, omeprazole 20 mg daily, lisinopril 20 mg daily, WelChol. PHYSICAL EXAMINATION: GENERAL: On examination, she is awake, alert, oriented and communicative. VITAL SIGNS: She is afebrile, pulse 75, respirations 18, blood pressure 117/61. LUNGS: Bilateral fair airflow. No rhonchi or crackle. HEART: S1 and S2 audible. ABDOMEN: Soft and nontender. No rebound. No guarding. NEUROLOGIC: The patient is awake, alert, oriented, and communicative. ASSESSMENT: 1. Status post fall. 2. History of seizure disorder. 3. Klebsiella urinary tract infection. 4. Hyperlipidemia. 5. Hypertension. PLAN: continue current medication. Continue physical therapy. Alyx Arredondo MD
--- NOTE | 2018-03-17 07:38 | CON ---
DATE: 03/16/2018 NEUROLOGY CONSULTATION CHIEF COMPLAINT: Near syncope. HISTORY OF PRESENT ILLNESS: This is an 87-year-old woman with history of hypertension; hyperlipidemia; history of seizure disorder, on Lamictal; history of Klebsiella pneumoniae urinary tract infections, came to the hospital for near syncope, where she was walking towards the fridge to put water in the fridge, but her left knee gave out. She fell and had difficulty getting up and therefore, the ambulance came. CAT scan of the head showed no acute intracranial abnormalities. She is currently deconditioned and also underwent a carotid Doppler, which showed 70% proximal left ICA stenosis and 40% to 59% proximal right ICA stenosis. No syncopal attacks described. She is on aspirin 81, Lipitor 10 for carotid artery disease and stroke prevention. She is on Lamictal for known seizure disorder. She is mildly deconditioned on TCU. PAST MEDICAL HISTORY: As above. SOCIAL HISTORY: No illicit drug use, smoking, or EtOH abuse. ALLERGIES: NO KNOWN DRUG ALLERGIES. FAMILY HISTORY: Noncontributory. REVIEW OF SYSTEMS: A 14-point review of systems is negative except per the HPI. MEDICATIONS: Reviewed by nurse's reconciliation sheet. CURRENT PHYSICAL EXAMINATION: VITAL SIGNS: Temperature 98, pulse rate of 80, blood pressure 117/61, respiratory rate 18, oxygen saturation 95% on room air. GENERAL: The patient is seen up in bed, in no acute distress. HEENT: Atraumatic and normocephalic. PERRLA. Extraocular muscles are intact. NECK: Supple. No JVD. No adenopathy noted. LUNGS: Clear to auscultation. No adventitious sounds. HEART: S1 and S2. Normal rate and rhythm. No murmurs, rubs, or gallops. ABDOMEN: Soft, nontender, nondistended. Bowel sounds are present. EXTREMITIES: No clubbing. No cyanosis. Peripheral pulses are 2+ felt bilaterally. NEUROLOGICAL: The patient is alert, oriented to person, place, and year. Recall after 5 minutes is 0/3. Poor attention span. Slow thought process. Cranial nerves II through XII are intact. Motor exam: Moves all extremities equally. No pronator drift seen. Sensory exam: Light touch, pinprick, proprioception, and vibration are intact. DTRs are 2+. Coordination: Qucetx-mj-[id number] intact. No dysmetria noted. Gait is deferred for now. LABORATORY DATA: Blood sugars today is 131. IMPRESSION AND PLAN: 1. Near syncope, secondary to underlying deconditioned state. Recommend physical and rehabilitation therapy for muscle strengthening, coordination, and balance exercises. 2. Also, given her carotid artery disease, which showed 70% left internal carotid artery stenosis, I would recommend aspirin 81 and Lipitor of at least 40 for carotid artery disease. 3. Continue her Lamictal for underlying remote history of seizure disorder and continue her on present management. Thank you for this consult. Carl Nolan MD
[2018-03-17] MEDS: Cefpodoxime (Vantin) 200 mg Tab PO SCH ×2 (07:55→17:10)
[2018-03-17] MEDS: POLYETHYLENE GLYCOL 3350 17 GM/Dose PACKET PO SCH ×2 (10:17→17:09)
--- NOTE | 2018-03-17 18:44 | PN ---
DATE: 03/17/2018 SUBJECTIVE: The patient is 87 years old, seen and examined, lying in bed. therapy, doing very well. Seems to be more stable, eating and tolerating. No nausea or vomiting. No diarrhea. PHYSICAL EXAMINATION VITAL SIGNS: The patient is afebrile, pulse 80, respirations 18, and blood pressure 141/65. LUNGS: Bilateral good airflow. No rhonchi or crackles. HEART: S1 and S2 audible. ABDOMEN: Soft and nontender. No rebound. No guarding. NEUROLOGIC: The patient is awake, alert, oriented, able to communicate. EXTREMITIES: Bilateral leg, no edema. Bilateral knee, no effusion noted. ASSESSMENT: 1. Status post fall. 2. Status post near syncope. 3. Hypertension. 4. Hyperlipidemia. 5. History of depression. 6. History of seizure disorder. 7. Klebsiella pneumoniae urinary tract infection. PLAN: We will continue the patient on Vantin. We will continue her on current medication and encourage physical therapy. We will followup the patient in a.m. Alyx Arredondo MD
[2018-03-18] MEDS: Cefpodoxime (Vantin) 200 mg Tab PO SCH ×2 (08:25→17:47)
[2018-03-18] MEDS: POLYETHYLENE GLYCOL 3350 17 GM/Dose PACKET PO SCH ×2 (09:58→17:47)
--- NOTE | 2018-03-18 16:11 | PN ---
DATE: 03/18/2018 SUBJECTIVE: The patient is an 87-year-old, seen and examined. Doing well, participating in therapy, eating and tolerating. PHYSICAL EXAMINATION: VITAL SIGNS: She is afebrile, pulse 76, respirations 18, and blood pressure 149/75. LUNGS: Bilateral fair airflow. No rhonchi or crackles. HEART: S1 and S2 audible. ABDOMEN: Soft and nontender. No rebound. No guarding. NEUROLOGIC: She is awake, alert, oriented, and communicative. LABORATORY DATA: Blood sugar is 119. ASSESSMENT: 1. Status post fall. 2. Knee osteoarthritis. 3. Near syncope. 4. Hypothyroidism. 5. Hypertension. 6. Hyperlipidemia. PLAN: We will continue the patient on current medication, encourage physical therapy, gait training and analgesic as needed. We will followup the patient in the a.m. Alyx Arredondo MD
[2018-03-19] MEDS: Cefpodoxime (Vantin) 200 mg Tab PO SCH ×2 (08:11→17:13)
[2018-03-19] MEDS: POLYETHYLENE GLYCOL 3350 17 GM/Dose PACKET PO SCH ×2 (10:00→17:13)
--- NOTE | 2018-03-19 15:20 | PN ---
DATE: 03/19/2018 SUBJECTIVE: The patient is an 87-year-old, seen and examined, doing very well, and participating in therapy. No nausea, vomiting, or diarrhea. Eating and tolerating. PHYSICAL EXAMINATION VITAL SIGNS: She is afebrile, pulse 66, respirations 16, and blood pressure 125/75. LUNGS: Bilateral fair flow. No rhonchi or crackle. HEART: S1 and S2 audible. ABDOMEN: Soft and nontender. No rebound. No guarding. NEUROLOGICAL: She is awake, alert, oriented, and communicative. EXTREMITIES: Moves all extremities. Bilateral leg no edema. LABORATORY DATA: Blood sugar is 108. ASSESSMENT: 1. Status post fall. 2. Knee osteoarthritis. 3. Hypertension. 4. Hyperlipidemia. 5. Hypothyroidism. 6. History of seizure disorder. PLAN: MAR reviewed. Continue current medications. The patient is being treated for UTI. She had Klebsiella pneumoniae UTI and currently she is on continue total of 7 days. Alyx Arredondo MD
[2018-03-19] MEDS ORDERED: Alum-Mag Hydrox-Simethicone Susp (30 mL) PO ONE (20:11)
[2018-03-20] MEDS: Pantoprazole 40 mg EC Tab PO SCH (06:01)
[2018-03-20] MEDS: Cefpodoxime (Vantin) 200 mg Tab PO SCH ×2 (08:05→17:15)
[2018-03-20] MEDS: POLYETHYLENE GLYCOL 3350 17 GM/Dose PACKET PO SCH ×2 (09:33→17:15)
--- NOTE | 2018-03-20 17:15 | PN ---
DATE: 03/20/2018 SUBJECTIVE: The patient is 87 years old, seen and examined, doing well, participating in therapy. Feels dizzy at times. Doing well, otherwise. PHYSICAL EXAMINATION: VITAL SIGNS: She is afebrile. Pulse 85, respirations 18, blood pressure 92/60. LUNGS: Bilateral fair airflow. No rhonchi or crackle. HEART: S1 and S2, audible. ABDOMEN: Soft and nontender. No rebound. No guarding. NEUROLOGIC: The patient is awake, alert, oriented, and communicative, moves all extremities. LABORATORY DATA: Blood sugar is 109. ASSESSMENT: 1. Status post fall. 2. Left knee osteoarthritis. 3. Hypothyroidism. 4. Chronic vertigo. 5. History of seizure disorder. 6. Hyperlipidemia. 7. History of depression. 8. Klebsiella pneumoniae. 9. Urinary tract infection. PLAN: We will continue the patient on Vantin for another day and we will discontinue on Thursday and continue all other medications. Continue therapy and gait training. Alyx Arredondo MD
[2018-03-21] MEDS: Pantoprazole 40 mg EC Tab PO SCH (05:38)
[2018-03-21] MEDS: Cefpodoxime (Vantin) 200 mg Tab PO SCH ×2 (07:58→17:31)
[2018-03-21] MEDS: POLYETHYLENE GLYCOL 3350 17 GM/Dose PACKET PO SCH ×2 (09:59→17:31)
--- NOTE | 2018-03-21 20:51 | PN ---
DATE: 03/21/2018 SUBJECTIVE: The patient is 87 years old. Seen and examined. Doing well. Sitting in chair. Participating in therapy. PHYSICAL EXAMINATION: VITAL SIGNS: She is afebrile. Pulse 63, respirations 18, blood pressure 128/62. LUNGS: Bilateral fair air flow. No rhonchi or crackles. HEART: S1 and S2 audible. ABDOMEN: Soft and nontender. No rebound. No guarding. NEUROLOGIC: She is awake, alert, oriented and communicative. LABORATORY EXAMINATION: Blood sugar is 113. ASSESSMENT: 1. History of seizure disorder. 2. Status post fall. 3. Knee osteoarthritis. 4. Hypothyroidism. 5. Klebsiella pneumoniae urinary tract infection. PLAN: Currently, the patient is on antibiotics. We will continue that. Continue physical therapy. Continue current medication as per APR. We will follow up in a.m. Alyx Arredondo MD
[2018-03-22] MEDS: Pantoprazole 40 mg EC Tab PO SCH (05:20)
[2018-03-22] MEDS: Cefpodoxime (Vantin) 200 mg Tab PO SCH ×2 (07:50→17:52)
[2018-03-22] MEDS: POLYETHYLENE GLYCOL 3350 17 GM/Dose PACKET PO SCH ×2 (10:03→17:20)
--- NOTE | 2018-03-22 15:40 | PN ---
DATE: 03/22/2018 SUBJECTIVE: The patient is 87-year-old seen and examined, doing well, eating and tolerating. No nausea or vomiting. No diarrhea. Participating in therapy. PHYSICAL EXAMINATION: VITAL SIGNS: She is afebrile, pulse 82, respiration 18, and blood pressure 107/64. LUNGS: Bilateral fair airflow. No rhonchi or crackle. HEART: S1 and S2 audible. ABDOMEN: Soft and nontender. No rebound. No guarding. NEUROLOGIC: The patient is awake, alert, oriented, communicative, and ambulatory with a walker. LABORATORY DATA: Blood sugar is 106. ASSESSMENT: 1. Status post transient ischemic attack. 2. Syncope. 3. Hypertension. 4. Hyperlipidemia. 5. History of seizure disorder. 6. Deconditioning, difficulty walking. 7. Knee osteoarthritis. PLAN: I will continue the patient on current medication. Her MAR reviewed, found to be appropriate. I will discontinue her antibiotics and continue physical therapy. Discharge plan for tomorrow. Alyx Arredondo MD
[2018-03-22 16:18] VITALS: TEMP 97.9
[2018-03-22 17:27] VITALS: O2SAT 93
[2018-03-23] MEDS: Pantoprazole 40 mg EC Tab PO SCH (05:24)
[2018-03-23] MEDS: Cefpodoxime (Vantin) 200 mg Tab PO SCH (07:37)
[2018-03-23] MEDS: POLYETHYLENE GLYCOL 3350 17 GM/Dose PACKET PO SCH (10:18)
[2018-03-23 10:33] VITALS: BP 127/64; PULSE 78
--- NOTE | 2018-03-23 11:33 | CP.PCM.CON ---
<Osmani Segundo - Last Filed: 03/23/18 11:54> History of Present Illness - History of Present Illness History of Present Illness: Podiatry consult note for Dr. Wilkerson 87 year old female,with PMHx of hypertension, hyperlipidemia, depression, gastritis, CAD s/p stents, Seizure disorder, diabetes was seen and evaluated in TCU for elongated toenails. Patient resting comfortably in chair, and states she will be discharged home today. Patient has a private gelatin plant supervisor who cuts patient's toenails, however, patient has not seen gelatin plant supervisor in some time. Patient denies any pain to her feet. Patient further denies numbness, tingling, fever, nausea, vomiting shortness of breath, chest pain or other complaints. Review of Systems - Review of Systems All systems: reviewed and no additional remarkable complaints except Review of Systems: As per HPI Past Patient History - Infectious Disease Hx of Infectious Diseases: None - Tetanus Immunizations Tetanus Immunization: Unknown - Past Social History Smoking Status: Former Smoker - CARDIAC Hx Cardiac Disorders: Yes Hx Hypertension: Yes - PULMONARY Hx Respiratory Disorders: No (hx pe) Hx Asthma: No Hx Chronic Obstructive Pulmonary Disease (COPD): No Hx Emphysema: No - NEUROLOGICAL Hx Neurological Disorder: Yes (NEUROPATHY) HX Cerebrovascular Accident: No Hx Dementia: No Hx Seizures: Yes - HEENT Hx HEENT Problems: Yes Hx Cataracts: Yes (B/L CATARACT WITH SX) - RENAL Hx Chronic Kidney Disease: No - ENDOCRINE/METABOLIC Hx Diabetes Mellitus Type 2: Yes - HEMATOLOGICAL/ONCOLOGICAL Hx Blood Disorders: No (blood transfusion) Hx Anemia: No Hx Cancer: No - INTEGUMENTARY Hx Dermatological Problems: Yes Other/Comment: reddened sacrum/buttocks-IASD - MUSCULOSKELETAL/RHEUMATOLOGICAL Hx Falls: Yes (past) - GASTROINTESTINAL Hx Gastrointestinal Disorders: Yes (hx rectal bleed/constipation/peptic ulcer) - GENITOURINARY/GYNECOLOGICAL Hx Reproductive Disorders: No - PSYCHIATRIC Hx Psychophysiologic Disorder: No Hx Depression: No Hx Emotional Abuse: No Hx Physical Abuse: No Hx Substance Use: No - SURGICAL HISTORY Hx Cardiac Catheterization: Yes Hx Coronary Stent: Yes (x3) Other/Comment: 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 - ANESTHESIA Hx Anesthesia: Yes Hx Anesthesia Reactions: Yes (VOMITING) Hx Malignant Hyperthermia: No Meds Allergies/Adverse Reactions: Allergies Allergy/AdvReac Type Severity Reaction Status Date / Time No Known Allergies Allergy Verified 03/17/18 06:22 - Medications Medications: Current Medications Acetaminophen (Tylenol 325mg Tab) 650 mg PO Q6H PRN; Protocol PRN Reason: Pain, Mild (1-3) Last Admin: 03/17/18 19:39 Dose: 650 mg Amlodipine Besylate (Norvasc) 10 mg PO DAILY [facility]; Protocol Last Admin: 03/23/18 10:18 Dose: 10 mg Aspirin (Ecotrin) 81 mg PO 0800 PREM; Protocol Last Admin: 03/23/18 07:37 Dose: 81 mg Atorvastatin Calcium (Lipitor) 10 mg PO DIN [facility]; Protocol Last Admin: 03/22/18 17:20 Dose: 10 mg Cefpodoxime Proxetil (Vantin) 200 mg PO 0800,1800 PREM; Protocol Last Admin: 03/23/18 07:37 Dose: 200 mg Lamotrigine (Lamictal) 25 mg PO DAILY [facility]; Protocol Last Admin: 03/23/18 10:17 Dose: 25 mg Lisinopril (Zestril) 20 mg PO DAILY [facility]; Protocol Last Admin: 03/23/18 10:18 Dose: 20 mg Pantoprazole Sodium (Protonix Ec Tab) 40 mg PO 0600 PREM Last Admin: 03/23/18 05:24 Dose: 40 mg Paroxetine HCl (Paxil) 20 mg PO DAILY [facility]; Protocol Last Admin: 03/23/18 10:18 Dose: 20 mg Polyethylene Glycol (Miralax) 17 gm PO BID [facility]; Protocol Last Admin: 03/23/18 10:18 Dose: Not Given Physical Exam - Constitutional Appears: Well, Non-toxic - Head Exam Head Exam: ATRAUMATIC, NORMOCEPHALIC - Extremities Exam Additional comments: Bilateral Lower Extremity Exam VASC: DP and PT 1/4 palpable bilaterally, CFT less than 3 seconds X 10, TG within normal limits, no edema noted DERM: elongated toenails X 10, no dystrophy noted, no open wounds, no lesions, no clinicals signs of infection NEURO: grossly intact ORTHO: no pain with AK, STJ, or MTJ ranges of motion, MSK 5/5 - Neurological Exam Neurological exam: Alert, Oriented x3 - Psychiatric Exam Psychiatric exam: Normal Affect, Normal Mood - Skin Skin Exam: Normal Color Results - Vital Signs Recent Vital Signs: Last Vital Signs Temp 97.9 F 02/04/19 16:00 Pulse 78 03/23/18 10:18 Resp 18 03/22/18 10:00 BP 127/64 03/23/18 10:18 Pulse Ox 93 L 03/22/18 17:13 - Labs Labs: Laboratory Results - last 24 hr 03/22/18 03/22/18 03/22/18 11:55 16:48 21:09 POC Glucose (mg/dL) 106 109 111 H 03/23/18 05:21 POC Glucose (mg/dL) 117 H Assessment & Plan - Assessment and Plan (Free Text) Assessment: 87 y/o female patient seen and evaluated for elongated toenails X 10, non- painful Plan: Patient seen and evaluated Plan discussed with Dr. Wilkerson Chart, labs and vitals were reviewed- afebrile, absent leukocytosis Aseptic debridement of toenails X 10 with sterile nippers Patient tolerated well, and stated no complaints Patient educated on proper diabetic foot care Thank you for the podiatry consult - Date & Time Date: 03/23/18 Time: 12:00 <Toby Wilkerson - Last Filed: 03/23/18 16:21> Results - Vital Signs Recent Vital Signs: Last Vital Signs Temp 97.9 F 03/22/18 16:00 Pulse 78 03/23/18 10:18 Resp 18 03/22/18 10:00 BP 127/64 03/23/18 10:18 Pulse Ox 93 L 03/22/18 17:13 - Labs Labs: Laboratory Results - last 24 hr 03/22/18 03/22/18 03/23/18 16:48 21:09 05:21 POC Glucose (mg/dL) 109 111 H 117 H 03/23/18 11:19 POC Glucose (mg/dL) 92 Attending/Attestation - Attestation I have personally seen and examined this patient.: Yes I have fully participated in the care of the patient.: Yes I have reviewed all pertinent clinical information: Yes
--- NOTE | 2018-03-23 21:53 | DS ---
HISTORY OF PRESENT ILLNESS: The patient is an 87-year-old seen and examined sitting in chair, seems to be comfortable. She came in after she concerned and she felt very weak and dizzy, so she was treated on acute care floor and was transferred to TCU for rehab and . Denies any nausea or vomiting. No diarrhea. PHYSICAL EXAMINATION: VITAL SIGNS: She is afebrile, pulse 78, respiration 18, blood pressure 127/64. LUNGS: Bilateral fair airflow. No rhonchi or crackles. HEART: S1 and S2 audible. ABDOMEN: Soft, nontender. No rebound or guarding. NEUROLOGIC: The patient is awake, alert, oriented, communicative, ambulatory. LABORATORY DATA: Blood sugar is 92. ASSESSMENT: 1. Status post fall. 2. Knee osteoarthritis. 3. History of seizure disorder. 4. Hypertension. 5. Hyperlipidemia. 6. History of depression. PLAN: The patient will be discharged home. She will resume her medication including aspirin, lamotrigine, atorvastatin,amlodipine, paroxetine, Protonix and lisinopril. She will follow with her PMD, Dr. Castro in 2 to 3 weeks. Alyx Arredondo MD
== END 2018-03-23 15:52 | disposition home or self-care (01) | DRG 556 ==
LOC: TRCU 13:14
PROVIDERS: ADMIT Internal Medicine; ATTEND Internal Medicine
PROC: F07Z9FZ Gait Training/Functional Ambulation Treatment using Assistive, Adaptive, Supportive or Protective Equipment (ICD-10-PCS; principal; 2018-03-16)
PROC: F08Z4FZ Home Management Treatment using Assistive, Adaptive, Supportive or Protective Equipment (ICD-10-PCS; 2018-03-16)
DX: R26.2 Difficulty in walking, not elsewhere classified (principal); N39.0 Urinary tract infection, site not specified; B96.1 Klebsiella pneumoniae [K. pneumoniae] as the cause of diseases classified elsewhere; I65.23 Occlusion and stenosis of bilateral carotid arteries; M17.12 Unilateral primary osteoarthritis, left knee; I25.10 Atherosclerotic heart disease of native coronary artery without angina pectoris; I10 Essential (primary) hypertension; G40.909 Epilepsy, unspecified, not intractable, without status epilepticus; E03.9 Hypothyroidism, unspecified; E11.9 Type 2 diabetes mellitus without complications; F03.90 Unspecified dementia, unspecified severity, without behavioral disturbance, psychotic disturbance, mood disturbance, and anxiety; F32.9 Major depressive disorder, single episode, unspecified; E78.5 Hyperlipidemia, unspecified; Z86.73 Personal history of transient ischemic attack (TIA), and cerebral infarction without residual deficits; Z91.81 History of falling; Z95.5 Presence of coronary angioplasty implant and graft; Z87.891 Personal history of nicotine dependence

== ENCOUNTER 2018-05-08 00:35 | Inpatient (IN) | payer MEDICARE, OTHER ==
--- NOTE | 2018-05-08 01:44 | ED PDOC ---
Arrival/HPI - General Chief Complaint: Chest Pain Time Seen by Provider: 05/08/18 00:49 Historian: Patient - History of Present Illness Narrative History of Present Illness (Text): 05/08/18 01:54 87 year old female, with past medical history of hypertension, hyperlipidemia, depression, gastritis, CAD s/p stents, seizure disorder, and diabetes presents to emergency department complaining of chest pain, shortness of breath, and an episode of vomiting prior to arrival. Patient states she called 911 herself when the symptoms began. Patient reports she did not take any medication to alleviate the pain. Patient denies any fevers, chills, diarrhea, abdominal pain, or any other complaints. 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: Time/Duration: Prior to Arrival Symptom Onset: Gradual Symptom Course: Unchanged Activities at Onset: Light Context: Home Past Medical History - Provider Review Nursing Documentation Reviewed: Yes - Past History Past History: No Previous - Infectious Disease Hx of Infectious Diseases: None - Tetanus Immunization Tetanus Immunization: Unknown - Cardiac Hx Cardiac Disorders: Yes Hx Hypertension: Yes - Pulmonary Hx Respiratory Disorders: No (hx pe) Hx Asthma: No Hx Chronic Obstructive Pulmonary Disease (COPD): No Hx Emphysema: No - Neurological Hx Neurological Disorder: Yes (NEUROPATHY) HX Cerebrovascular Accident: No Hx Dementia: No Hx Seizures: Yes - HEENT Hx HEENT Disorder: Yes Hx Cataracts: Yes (B/L CATARACT WITH SX) - Renal Hx Renal Disorder: No - Endocrine/Metabolic Hx Diabetes Mellitus Type 2: Yes - Hematological/Oncological Hx Blood Disorders: No (blood transfusion) Hx Anemia: No Hx Cancer: No - Integumentary Hx Dermatological Disorder: Yes Other/Comment: reddened sacrum/buttocks-IASD - Musculoskeletal/Rheumatological Hx Falls: Yes (past) - Gastrointestinal Hx Gastrointestinal Disorders: Yes (hx rectal bleed/constipation/peptic ulcer) - Genitourinary/Gynecological Hx Reproductive Disorders: No - Psychiatric Hx Psychophysiologic Disorder: No Hx Depression: No Hx Emotional Abuse: No Hx Physical Abuse: No Hx Substance Use: No - Past Surgical History Past Surgical History: Unable to Obtain - Surgical History Hx Cardiac Catheterization: Yes Hx Coronary Stent: Yes (x3) Other/Comment: 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 - Anesthesia Hx Anesthesia: Yes Hx Anesthesia Reactions: Yes (VOMITING) Hx Malignant Hyperthermia: No - Suicidal Assessment Feels Threatened In Home Enviroment: No Family/Social History - Physician Review Nursing Documentation Reviewed: Yes Family/Social History: Unknown Family HX Smoking Status: Former Smoker Hx Alcohol Use: Yes (h/o) Hx Substance Use: No Hx Substance Use Treatment: No Allergies/Home Meds Allergies/Adverse Reactions: Allergies No Known Allergies Allergy (Verified 03/17/18 06:22) Home Medications: Home Meds Medication Instructions Recorded Confirmed Aspirin [Aspir 81] 81 mg PO DAILY 08/08/11 03/17/18 Orchard Oil/[place]-3 Fatty Acids 500 mg PO DAILY 08/08/11 03/17/18 [Fish Oil 500 mg Softgel] Vitamin B Complex & Vitamin C 1 tab PO DAILY 08/08/11 03/17/18 [Strovite] Colesevelam HCl [Welchol] 625 mg PO BID 06/04/17 03/17/18 Lamotrigine [Lamictal Xr] 25 mg PO DAILY 06/04/17 03/17/18 Lisinopril [Zestril] 20 mg PO DAILY 06/04/17 03/17/18 Omeprazole 20 mg PO DAILY 06/04/17 03/17/18 PARoxetine [Paxil] 20 mg PO DAILY 06/04/17 03/17/18 Simvastatin [Zocor] 20 mg PO DAILY 06/04/17 03/17/18 amLODIPine [Norvasc] 10 mg PO DAILY 06/04/17 03/17/18 Review of Systems - Physician Review All systems were reviewed & negative as marked: Yes - Review of Systems Constitutional: absent: Fevers Respiratory: SOB. absent: Cough Cardiovascular: Chest Pain Gastrointestinal: Vomiting (one episode ). absent: Abdominal Pain, Diarrhea Genitourinary Female: absent: Frequency, Hematuria, Urine Output Changes Musculoskeletal: absent: Back Pain, Neck Pain Skin: absent: Rash Neurological: absent: Headache, Dizziness Physical Exam - Physical Exam Narrative Physical Exam (Text): 05/08/18 01:44 Gen: VS reviewed, alert, well developed, well nourished, nontoxic, mild distress Eye: EOMI, PERRL Neck: no JVD, supple, no adenopathy CV: irregularly irregular rhythm, regular rate Pulm: no distress, clear to auscultation, no wheeze, no rhonchi, breath sounds equal, no rales Abd: soft, nontender, no guarding, no rebound, no rigidity Ext: pitting edema in bilateral lower extremities Skin: good color, no rash, no cyanosis Psych: responds appropriately to questions, normal affect Neuro: oriented x3, CN2-12 intact grossly, motor intact, sensation intact Vital Signs Reviewed: Yes Vital Signs Temp Pulse Resp BP Pulse Ox 05/08/18 00:43 97.3 F L 105 H 22 176/107 H 100 Temperature: Afebrile Blood Pressure: Normal Pulse: Regular Respiratory Rate: Normal Appearance: Positive for: Well-Appearing, Non-Toxic, Comfortable Pain Distress: None Mental Status: Positive for: Alert and Oriented X 3 Medical Decision Making ED Course and Treatment: 05/08/18 01:46 Impression: 87 year old female presents to emergency department for chest pain, one episode of vomiting, and shortness of breath prior to arrival. Plan: -- Reassess and disposition Prior Visits: Notes and results from previous visits were reviewed. Progress Notes: 05/08/18 06:[address] saxena. patient to be admitted for chf. this is presumably triggered by chf which is a new finding. consult cardiology to dr. phillip. patient remained stable throughout ED course, was given dose of lasix for Ct evidence of pulm edema. a fib rate controlled. patient is a high risk for bleeding if anticoagulated (has-bled score =4). i will defer anticoagulation at this time. - RAD Interpretation Narrative RAD Interpretations (Text): 05/08/18 04:09 CT Angio IMPRESSION: Small sliding hiatal hernia. Moderate distention of the stomach suggestive of gastroparesis. Mild bilateral pleural effusions. Passive atelectatic airspace disease of the lower lobes. Interstitial pulmonary edema. Pulmonary arterial hypertension. Dilated suprahepatic IVC suggestive of dysfunction of the right cardiac cavities. No pulmonary habitus is noted. Electronically signed on May 08, 2018 4:09:44 AM EDT by: Judy Gold M.D., Certified by MELVIN, MSK, Neuroradiology Interior Painter: Radiologist - EKG Interpretation EKG Interpretation (Text): 05/08/18 06:34 0054: atrial fibrillation at 106 bpm, nml qrs, nml axis, nonspecific t wave abn Interpreted by ED Physician: Yes - Scribe Statement The provider has reviewed the documentation as recorded by the Scribe Beny Billingsley All medical record entries made by the Scribe were at my direction and personally dictated by me. I have reviewed the chart and agree that the record accurately reflects my personal performance of the history, physical exam, medical decision making, and the department course for this patient. I have also personally directed, reviewed, and agree with the discharge instructions and disposition. Disposition/Present on Arrival - Present on Arrival Any Indicators Present on Arrival: No History of DVT/PE: No History of Uncontrolled Diabetes: No Urinary Catheter: No History of Decub. Ulcer: No History Surgical Site Infection Following: None - Disposition Have Diagnosis and Disposition been Completed?: Yes Diagnosis: CHF (congestive heart failure), Atrial fibrillation Disposition: HOSPITALIZED Disposition Time: 07:06 Patient Plan: Admission Condition: GUARDED Discharge Instructions (ExitCare): Heart Failure (ED) Referrals: Dominga Castro DO [Primary Care Provider] - Follow up with primary Forms: [employer] ([place] [employer])
[2018-05-08 02:15] LABS: BASO # 0.04 K/mm3 (0.0-2.0); BASO % 0.7 % (0.0-3.0); EOS # 0.2 (0.0-0.7); EOS % 3.7 % (1.5-5.0); HEMOGLOBIN 9.3 g/dL (12.0-16.0); LYMPH # 1.9 (1.2-3.4); LYMPH % 30.9 % (22.0-35.0); MEAN CELL VOLUME 83.1 fl (80.0-105.0); MEAN CORPUSCULAR HEMOGLOBIN 23.8 pg (25.0-35.0); MEAN CORPUSCULAR HGB CONC 28.6 g/dl (31.0-37.0); MEAN PLATELET VOLUME 9.8 fl (7.0-11.0); MONO # 0.5 (0.1-0.6); RBC 3.91 10^6/uL (3.5-6.1); RED CELL DISTRIBUTION WIDTH 20.6 % (11.5-14.5)
[2018-05-08 02:18] LABS: TROPONIN I < 0.01 ng/mL
[2018-05-08 02:23] LABS: INR 1.01; PARTIAL THROMBOPLASTIN TIME 33.7 Seconds (26.9-38.3); PROTHROMBIN TIME 11.2 SECONDS (9.4-12.5)
[2018-05-08 02:30] LABS: ALB/GLOB RATIO 1.1 (1.1-1.8); ALBUMIN 3.5 g/dL (3.0-4.8); ALT/SGPT 8 U/L (7-56); AST/SGOT 24 U/L (14-36); BLOOD UREA NITROGEN 14 mg/dL (7-21); CALCIUM 10.6 mg/dL (8.4-10.5); GFR NON-AFRICAN AMERICAN > 60
[2018-05-08] MEDS ORDERED: Iohexol 350 MG/100 ML VIAL ONE (02:53)
--- NOTE | 2018-05-08 09:35 | CON ---
DATE OF CONSULTATION: 05/08/2018 REQUESTING PHYSICIAN: Dr. Arredondo. REASON FOR CONSULTATION: Dyspnea. HISTORY: This is an 87-year-old woman, known to me with a history of remote coronary artery disease, status post PCI as well as hypertension, hyperlipidemia, and diabetes, who was brought to the emergency room complaining of chest pain and dyspnea and vomiting. She is seen lying on a stretcher in the emergency room. When questioned, she denies any chest pain. She has had multiple admissions over the past number of years for gastrointestinal bleeding and possible pulmonary embolus many years ago. PAST MEDICAL HISTORY: Past history is notable for the problems mentioned above. She has had depression in the past as well as questionable seizures and hyperlipidemia. She has a history of cataracts, peripheral neuropathy, and COPD. MEDICATIONS: Her medications at home include aspirin, Welchol, Lamictal, Zestril, omeprazole, Paxil, Zocor and Norvasc. ALLERGIES: SHE HAS NO REPORTED ALLERGIES. SOCIAL HISTORY: She is a former smoker. She denies alcohol use. She lives alone and reportedly is able to attend her own needs at home. She does use a walker. REVIEW OF SYSTEMS: A 10-point review of systems is notable mainly for the problems mentioned above. PHYSICAL EXAMINATION: GENERAL: She is a somewhat frail-appearing very elderly woman. VITAL SIGNS: Her blood pressure is 160/90 with a pulse of 96, she is in atrial fibrillation, respirations are 16. She is afebrile. HEENT: Normocephalic, atraumatic. NECK: Supple. No JVD noted. CHEST: Bilateral scattered rhonchi. HEART: PMI displaced laterally with a soft systolic murmur in the lower left sternal border and apex. ABDOMEN: Soft and nontender with normal bowel sounds. EXTREMITIES: No clubbing, cyanosis or edema. SKIN: Warm and dry. PSYCHIATRIC: Appears to have normal mood and affect. NEUROLOGIC: Alert and oriented x3. No gross motor or sensory deficits noted at the present time. DIAGNOSTIC DATA: White count 6, hemoglobin and hematocrit are 9.3 and 32.5 with a platelet count of 311,000. PT/PTT normal. Potassium 3.4, BUN and creatinine of 14 and 0.7. Initial troponin 0.01. TSH 3.1. Chest x-ray is pending. IMPRESSION: 1. Dyspnea and chest pain, etiology likely multifactorial. Currently in atrial fibrillation with moderate ventricular rate. This appears to be a new-onset. 2. Coronary artery disease, status post remote PCI. 3. History of diabetes and hyperlipidemia. 4. Rest of problems as noted. RECOMMENDATIONS: As she has had no recent history of active gastrointestinal bleeding and is currently in atrial fibrillation, initiation of anticoagulant therapy appears reasonable at the present time. Initiation of rate control therapy with diltiazem orally will be planned. Old records will be reviewed. An echocardiogram has been ordered. One dose of IV Lasix will be administered. In general, conservative management appears most appropriate at this time. Thank you for this consultation. I will be happy to follow along through her hospital course. Jose Gamez MD
[2018-05-08 10:09] LABS: BLOOD UREA NITROGEN 11 mg/dL (7-21); CALCIUM 10.8 mg/dL (8.4-10.5); GFR NON-AFRICAN AMERICAN > 60
[2018-05-08] MEDS: POLYETHYLENE GLYCOL 3350 17 GM/Dose PACKET PO SCH ×2 (10:34→17:55)
--- NOTE | 2018-05-08 11:46 | CT ---
Date of service: 05/08/2018 PROCEDURE: CT Chest with contrast (Pulmonary Angiogram) HISTORY: pulmonary embolism COMPARISON: None available. TECHNIQUE: Axial computed tomography images were obtained of the chest in the pulmonary arterial phase of enhancement. Coronal and sagittal reformatted images were created and reviewed. Intravenous contrast dose: Radiation dose: Total exam DLP = 451.66 mGy-cm. This CT exam was performed using one or more of the following dose reduction techniques: Automated exposure control, adjustment of the mA and/or kV according to patient size, and/or use of iterative reconstruction technique. FINDINGS: PULMONARY ARTERIES: There are no filling defects in the pulmonary arteries to suggest acute pulmonary embolism. AORTA: No acute findings. No thoracic aortic aneurysm. There are aortic atherosclerotic calcifications present. LUNGS: The lungs are well inflated and clear. There are tiny scattered peripheral subcentimeter nodules in the lungs. No focal consolidation. There is mild interlobular septal thickening in the upper lobes. PLEURAL SPACES: Small pleural effusions, larger on the right. No pneumothorax. HEART: Mild cardiomegaly. No significant pericardial effusion. LYMPH NODES: No pathologic mediastinal or hilar lymphadenopathy. BONES, CHEST WALL: Within normal limits for the patient's age. No fracture or destructive lesion OTHER FINDINGS: There is a small sliding hiatal hernia and diffuse dilatation of the esophagus with fluid level. IMPRESSION: No CTA evidence for acute pulmonary embolism. Mild interlobular septal thickening in the upper lobes may represent inter station pulmonary edema. Tiny scattered subcentimeter peripheral nodules, nonspecific, the differential considerations includes post inflammatory nodules and hypersensitivity pneumonitis. Small pleural effusions, larger on the right. Small sliding hiatal hernia and diffuse dilatation of the esophagus with fluid level. A preliminary report was provided by [facility].
[2018-05-08 12:40] LABS: HDL CHOLESTEROL 48 mg/dL (29-60)
[2018-05-08 12:51] LABS: LDL CHOLESTEROL 123 mg/dL (0-129)
[2018-05-08] MEDS: LAMOTRIGINE 25 MG PO SCH (14:01)
[2018-05-08 14:27] VITALS: BMI 23.1
--- NOTE | 2018-05-08 15:36 | HP ---
DATE OF EXAM: 05/08/2018 HISTORY OF PRESENT ILLNESS: The patient is an 87-year-old who came to emergency room this morning when she woke up she was unable to catch her breath. She was short of breath, having some funny feeling in her chest, there is chest discomfort with shortness of breath felt nauseous. Denies any fever or chills. No nausea or vomiting or diarrhea. Some chest discomfort. No cough or congestion. No abdominal pain. No rectal bleeding. No hemoptysis. No hematemesis. PAST MEDICAL HISTORY: 1. Her past medical history significant for seizure disorder. 2. Mild dementia. 3. Hypertension. 4. History of depression. 5. Hyperlipidemia. 6. History of coronary artery disease status post angioplasty. 7. History of COPD. 8. Peripheral neuropathy. ALLERGIES: SHE IS NOT ALLERGIC TO ANY MEDICATIONS. MEDICATIONS: At home she is on she is on Lamictal 25 daily, amlodipine 10 mg daily, simvastatin 20 mg daily, MiraLax as needed, Paxil 20 daily, lisinopril 20 mg daily, aspirin 81 daily, omeprazole 40 mg daily and . SOCIAL HISTORY: She lives alone. 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 She has handicapped child who lives in assisted living. PHYSICAL EXAMINATION GENERAL: On examination in emergency room. She was seen to be having shortness of breath and palpitation. VITAL SIGNS: She is afebrile, pulse 108, respiration 18 and blood pressure 168/82. LUNGS: Bilateral fair airflow. No rhonchi or crackle. HEART: S1 and S2 audible. ABDOMEN: Soft and nontender. No rebound or guarding. NEUROLOGIC: The patient is awake and alert. Able to communicate. LABORATORY DATA: WBC 6.0, hemoglobin 9.3, hematocrit 32.5 and platelet of 311. PT 11.2, INR 1.01 and d-dimer 465. Chemistry; sodium 142, potassium 4.0, chloride 103, CO2 30, BUN 11, creatinine 0.6 and blood sugar of 110. ASSESSMENT: 1. Chest pain, rule out underlying coronary ischemia. 2. Congestive heart failure. 3. Atrial fibrillation. 4. Coronary artery disease status post angioplasty. 5. Bde-kgyrvpy-rvcofiuyj diabetes. 6. Hyperlipidemia. 7. Seizure disorder. 8. Depression. PLAN: Currently, the patient is on the diltiazem 60 mg every 6 hours. She is on aspirin 81 daily, she has been started on Eliquis. We will resume her usual medication. We will monitor her electrolytes, CBC and CMP in a.m. We will order for thyroid profile, out of bed to chair and we will reevaluate the patient in a.m. Alyx Arredondo MD
--- NOTE | 2018-05-08 23:54 | CARD ---
APPROVED REPORT Date of service: 05/08/2018 EKG Measurement Heart [id number] <Conclusion> Atrial fibrillation with rapid ventricular response Nonspecific ST and T wave abnormalities Abnormal ECG
--- NOTE | 2018-05-09 05:50 | CARD ---
APPROVED REPORT Date of service: 05/08/2018 EXAM: Two-dimensional and M-mode echocardiogram with Doppler and color Doppler. INDICATION Atrial Fibrillation 2D DIMENSIONS Left Atrium (2D)4.9 (1.6-4.0cm)IVSd1.1 (0.7-1.1cm) LVDd4.6 (3.9-5.9cm)PWd1.3 (0.7-1.1cm) LVDs3.5 (2.5-4.0cm)FS (%) 24.4 % LVEF (%)48.5 (>50%) M-Mode DIMENSIONS Aortic Root2.90 (2.2-3.7cm)Aortic Cusp Exc.1.30 (1.5-2.0cm) Aortic Valve AoV Peak Vwgbakwm011.0cm/Ray Peak GR.14mmHgAI P 1/2 [id number] Mitral Valve E/A ratio0.0 TDI E/Lateral E'0.0E/Medial E'0.0 Pulmonary Valve PV Peak Ustfjrpp14.0cm/sPV Peak Grad.2mmHg Tricuspid Valve TR Peak [id number]/sRAP [id number] Peak Gr.35mmHg [id number] LEFT VENTRICLE The left ventricle is normal size. There is mild concentric left ventricular hypertrophy. The systolic function is mildly impaired. There is mild hypokinesis of the inferoseptal wall. RIGHT VENTRICLE The right ventricle is normal size. The right ventricular systolic function is normal. ATRIA The left atrium is moderately dilated. The right atrium size is normal. The interatrial septum is intact with no evidence for an atrial septal defect. AORTIC VALVE The aortic valve is moderately sclerotic. There is mild aortic regurgitation. There is no aortic valvular stenosis. MITRAL VALVE Mitral annular calcification is moderate. The mitral valve is moderately thickened. Mitral regurgitation is moderate. TRICUSPID VALVE The tricuspid valve is normal in structure. There is mild tricuspid regurgitation. PULMONIC VALVE The pulmonary valve is normal in structure. GREAT VESSELS The aortic root is normal in size. The IVC is normal in size and collapses >50% with inspiration. PERICARDIAL EFFUSION There is no pleural effusion. There is no pericardial effusion. <Conclusion> Dilated LA. Normal LV size. Mild concentric LVH. Mildly reduced LV systoic function with inferoseptal hypokinesis. Moderate MR. Mild AI and TR.
[2018-05-09 07:55] LABS: HEMOGLOBIN 9.1 g/dL (12.0-16.0); MEAN CELL VOLUME 82.4 fl (80.0-105.0); MEAN CORPUSCULAR HEMOGLOBIN 23.2 pg (25.0-35.0); MEAN CORPUSCULAR HGB CONC 28.2 g/dl (31.0-37.0); MEAN PLATELET VOLUME 9.5 fl (7.0-11.0); RBC 3.92 10^6/uL (3.5-6.1); RED CELL DISTRIBUTION WIDTH 20.2 % (11.5-14.5); WHITE BLOOD COUNT 6.1 10^3/uL (4.5-11.0)
[2018-05-09 08:13] LABS: ALB/GLOB RATIO 1.2 (1.1-1.8); ALBUMIN 3.6 g/dL (3.0-4.8); ALT/SGPT 7 U/L (7-56); AST/SGOT 20 U/L (14-36); BLOOD UREA NITROGEN 19 mg/dL (7-21); CALCIUM 9.2 mg/dL (8.4-10.5); GFR NON-AFRICAN AMERICAN > 60
[2018-05-09 08:20] LABS: FREE T4 1.34 ng/dL (0.78-2.19)
--- NOTE | 2018-05-09 09:04 | PN ---
DATE: 05/09/2018 SUBJECTIVE: The patient is seen lying in bed on telemetry. She is comfortable at the present time. She denies any dyspnea. She remains in atrial fibrillation with controlled rate. MEDICATIONS: Her current medications include Cardizem 60 mg every 6 hours, Ecotrin once daily,Eliquis 2.5 mg b.i.d., Lamictal, Lipitor, amlodipine 10 mg daily, Zestril 20 mg daily and Paxil. OBJECTIVE: GENERAL: She is a very elderly woman who appears comfortable at the present time. VITAL SIGNS: Her blood pressure is 130/70 with pulse of 76 in atrial fibrillation, respirations 14. She is afebrile. HEENT: No JVD. CHEST: Few scattered rhonchi heard. HEART: PMI displaced laterally with systolic murmur at the lower left sternal border and apex. ABDOMEN: Soft, nontender with normoactive bowel sounds. EXTREMITIES: No edema. DIAGNOSTIC DATA: Morning blood work is pending. TSH 3.1. Echocardiogram revealed dilated left atrium with normal LV size, mild concentric LVH and mildly reduced LV systolic function with inferior septal hypokinesis. Moderate mitral regurgitation was present, mild aortic insufficiency and tricuspid regurgitation were noted as well. IMPRESSION: 1. Recent dyspnea, possibly secondary to new onset atrial fibrillation with rapid rate, currently controlled. 2. Moderate mitral regurgitation with fairly well preserved left ventricular function. 3. Coronary artery disease, status post remote percutaneous coronary intervention. 4. History of hypertension, hyperlipidemia. RECOMMENDATIONS: Eliquis therapy will be continued for now. To reduce her risk of bleeding, her aspirin will be discontinued. Amlodipine will also be discontinued and her diltiazem dose will be increased to a total 300 mg daily rather than continue on 2 calcium blockers. For blood pressure control, her lisinopril dose can be increased as well if needed. From a cardiac standpoint, she appears stable for discharge once medically cleared. I will be happy to follow along as needed. Jose Gamez MD [facility]
[2018-05-09] MEDS: diltiaZEM 300 mg/24 Hours CD Cap PO SCH (10:55)
[2018-05-09] MEDS: POLYETHYLENE GLYCOL 3350 17 GM/Dose PACKET PO SCH ×2 (11:16→17:42)
[2018-05-09] MEDS: LAMOTRIGINE 25 MG PO SCH (13:29)
--- NOTE | 2018-05-09 16:52 | PN ---
DATE: 05/09/2018 SUBJECTIVE: The patient is 87 years old, seen and examined, lying in bed, finishing up breakfast she has less shortness of breath. Denies any chest pain. PHYSICAL EXAMINATION: VITAL SIGNS: She is afebrile. Pulse 75, respiration 18, blood pressure 188/75. LUNGS: Bilateral fair air flow. No rhonchi or crackle. HEART: S1, S2, audible, irregular rate control. ABDOMEN: Soft, nontender. No rebound. No guarding. NEUROLOGIC: The patient is awake and alert, able to communicate. Bilateral leg, no edema. LABORATORY DATA: WBC 6.1, hemoglobin 9.1, hematocrit 32.3, platelets 278. Chemistry, sodium 141, potassium 3.6, chloride 104, CO2 of 30, BUN 19, creatinine 0.8, blood sugar 104. Stool Hemoccult is negative. CT scan of the chest was done, negative for pulmonary embolism. She has mild interlobular septal thickening in the upper lobe which may represent interstitial pulmonary edema. ASSESSMENT: 1. New-onset atrial fibrillation. 2. Chronic obstructive pulmonary disease. 3. Hypertension. 4. History of cancer disorder. 5. Depression. 6. Chronic anemia. 7. Mitral regurgitation. 8. Coronary artery disease status post angioplasty in the remote past. 9. Hypertension. 10. Hyperlipidemia. PLAN: Currently, the patient is on Eliquis. She is on Cardizem CD. She is on lamotrigine. We will continue that. She is on statin. Continue on lisinopril. I will request for TCU evaluation for close monitoring and rehab. Followup her electrolytes intermittently. Alyx Arredondo MD
[2018-05-10 07:24] LABS: ALB/GLOB RATIO 1.2 (1.1-1.8); ALBUMIN 3.3 g/dL (3.0-4.8); ALT/SGPT 9 U/L (7-56); AST/SGOT 21 U/L (14-36); BLOOD UREA NITROGEN 24 mg/dL (7-21); CALCIUM 8.8 mg/dL (8.4-10.5); GFR NON-AFRICAN AMERICAN > 60
[2018-05-10] MEDS: POLYETHYLENE GLYCOL 3350 17 GM/Dose PACKET PO SCH ×2 (09:06→17:17)
[2018-05-10] MEDS: diltiaZEM 300 mg/24 Hours CD Cap PO SCH (09:06)
--- NOTE | 2018-05-10 20:59 | PN ---
DATE: 05/10/2018 SUBJECTIVE: The patient is an 87-year-old, seen and examined, doing well, and less shortness of breath. No nausea or vomiting. PHYSICAL EXAMINATION: VITAL SIGNS: She is afebrile, pulse 59. respirations 18, and blood pressure 109/67. LUNGS: Bilateral fair airflow. No rhonchi or crackle. HEART: S1 and S2 audible. ABDOMEN: Soft and nontender. No rebound. No guarding. NEUROLOGIC: The patient is awake and alert, able to communicate, and moves all extremities. LABORATORY DATA: Blood sugar is 117. Stool Hemoccult is negative. ASSESSMENT: 1. New onset of atrial fibrillation. 2. History of depression. 3. History of seizure disorder. 4. Mitral regurgitation. 5. Coronary artery disease, status post angioplasty in the remote past. 6. Hyperlipidemia. PLAN: We will continue to monitor. Encourage ambulation. The patient wants to go home, she does not want to go to TCU at this time. We will reevaluate in a.m. If she remains stable on ambulation, she will be discharged in a.m. Alyx Arredondo MD
--- NOTE | 2018-05-11 02:41 | PN ---
DATE: 05/10/2018 SUBJECTIVE: The patient is seen lying in bed, on telemetry. She is comfortable at the present time. She denies any chest pain or dyspnea. MEDICATIONS: Her current medications include Cardizem CD 300 mg daily, Eliquis 2.5 mg b.i.d., Lamictal, Lipitor 20 mg daily, Paxil and Zestril 20 mg daily. OBJECTIVE: GENERAL: She is a very elderly woman who is comfortable at the present time. VITAL SIGNS: Blood pressure is 122/60 with a pulse of 60 and respirations are 16. She is afebrile. NECK: No JVD. CHEST: Few scattered rhonchi. HEART: Systolic murmur is noted at the lower sternal border and apex. ABDOMEN: Soft. Nontender. Normoactive bowel sounds. EXTREMITIES: No edema. DIAGNOSTIC DATA: Potassium 3.7. BUN and creatinine are 24 and 0.8. IMPRESSION: 1. Recent dyspnea, likely predominantly due to new-onset atrial fibrillation with rapid ventricular response, now rate controlled. 2. Moderate mitral regurgitation with preserved left ventricular function. 3. Coronary artery disease, status post remote percutaneous coronary intervention, clinically stable. 4. History of hypertension and hyperlipidemia. RECOMMENDATIONS: Her current medications will continue for now. Increase activity as tolerated is advised. Transitional care unit evaluation has been advised; however, the patient is refusing and prefers to be discharged to home. From a cardiac standpoint, she appears fairly stable to do so. I will be happy to follow along and make further recommendations as needed and arrange for outpatient followup as well. Jose Gamez MD [facility]
[2018-05-11 03:16] VITALS: O2SAT 95
[2018-05-11] MEDS: POLYETHYLENE GLYCOL 3350 17 GM/Dose PACKET PO SCH ×2 (09:57→17:35)
[2018-05-11] MEDS: diltiaZEM 300 mg/24 Hours CD Cap PO SCH (09:58)
[2018-05-11 12:09] VITALS: RESP 18
--- NOTE | 2018-05-11 12:15 | PN ---
DATE: 05/11/2018 SUBJECTIVE: The patient is seen lying in bed on telemetry. She is currently comfortable. She remains in atrial fibrillation with controlled rate. Her dyspnea has resolved. Her current medications include Cardizem CD 300 mg daily, Eliquis 2.5 mg b.i.d., Lamictal, Lipitor 20 mg daily, Paxil 20 mg daily, and Zestril 20 mg daily. PHYSICAL EXAMINATION: GENERAL: She is a very elderly woman who appears comfortable at rest. VITAL SIGNS: Blood pressure is 126/70 with pulse of 60 in atrial fibrillation, respirations are 14. She is afebrile. HEENT: No JVD. CHEST: Few scattered rhonchi heard. HEART: PMI is displaced laterally with an irregularly regular rhythm and systolic murmur in the left sternal border. ABDOMEN: Soft, nontender with normoactive bowel sounds. EXTREMITIES: No edema. DIAGNOSTIC DATA: No blood work pending from this morning. IMPRESSION: 1. Recent onset atrial fibrillation , now with controlled rate and on anticoagulant therapy. 2. Moderate mitral regurgitation with preserved left ventricular systolic function. 3. Coronary artery disease status post remote percutaneous coronary intervention, clinically stable. 4. History of hypertension and hyperlipidemia. RECOMMENDATIONS: Her current medications should be continued for now. If she is able to ambulate safely, discharge home later today would be reasonable. Her current medications will be continued. An outpatient followup arranged. The issue of fall precautions was discussed with her. Jose Gamez MD
--- NOTE | 2018-05-11 12:52 | CP.PCM.PCO ---
Physician Communication Note - Physician Communication Note Physician Communication Note: patient refused TCU
[2018-05-11 18:07] VITALS: BP 119/64; PULSE 71; TEMP 97.9
--- NOTE | 2018-05-12 02:27 | DS ---
HOSPITAL COURSE: The patient is an 87-year-old, who came in because of increasing shortness of breath and rapid heartbeat. She was found to be in rapid AFib. The patient was started on Cardizem drip that was switched to p.o. diltiazem and she was started on Eliquis. The patient was evaluated by Dr. Petersen and the patient did well. CT scan of the chest was done to rule out PE, it was negative for PE also sliding hiatal hernia. The patient did well. She was offered to go to TCU, but she rather wanted to go home. She refused to go to TCU. PHYSICAL EXAMINATION: GENERAL: Otherwise, she is awake, alert, oriented, and communicative. VITAL SIGNS: The patient is afebrile, pulse 71, respirations 18, and blood pressure 119/64. LUNGS: Bilateral fair airflow. No rhonchi or crackles. HEART: S1 and S2 audible. ABDOMEN: Soft and nontender. No rebound. No guarding. NEUROLOGIC: The patient is awake and alert, able to communicate, and ambulatory. LABORATORY DATA: Blood sugar 120. ASSESSMENT: 1. New onset of atrial fibrillation. 2. History of seizure disorder. 3. Anxiety disorder. 4. Hyperlipidemia. PLAN: The patient is being discharged home. She will resume her medications including omeprazole 20 mg daily, WelChol, she is on Paxil 20 mg daily, lisinopril 20 mg daily, Lamictal 25 daily, and simvastatin 20 mg daily. She is given prescription of diltiazem CD 300 mg daily and Eliquis 2.5 twice a day. She will follow up with Dr. Petersen or Dr. Castro as outpatient. Alyx Arredondo MD
== END 2018-05-11 18:59 | disposition home health service (06) | DRG 310 ==
LOC: ED 00:35 → ERH 07:07 → 2RSO 13:38
PROVIDERS: ADMIT Internal Medicine; ATTEND Internal Medicine
DX: I48.91 Unspecified atrial fibrillation (principal); I11.0 Hypertensive heart disease with heart failure; K44.9 Diaphragmatic hernia without obstruction or gangrene; I50.9 Heart failure, unspecified; I25.10 Atherosclerotic heart disease of native coronary artery without angina pectoris; Z95.5 Presence of coronary angioplasty implant and graft; E11.42 Type 2 diabetes mellitus with diabetic polyneuropathy; Z79.84 Long term (current) use of oral hypoglycemic drugs; E78.5 Hyperlipidemia, unspecified; G40.909 Epilepsy, unspecified, not intractable, without status epilepticus; J44.9 Chronic obstructive pulmonary disease, unspecified; D64.9 Anemia, unspecified; Z79.82 Long term (current) use of aspirin; F03.90 Unspecified dementia, unspecified severity, without behavioral disturbance, psychotic disturbance, mood disturbance, and anxiety; F41.9 Anxiety disorder, unspecified; I27.21 Secondary pulmonary arterial hypertension; I08.3 Combined rheumatic disorders of mitral, aortic and tricuspid valves; F32.89 Other specified depressive episodes; Z79.01 Long term (current) use of anticoagulants; Z79.899 Other long term (current) drug therapy; Z86.711 Personal history of pulmonary embolism; Z87.11 Personal history of peptic ulcer disease; Z87.891 Personal history of nicotine dependence

== ENCOUNTER 2018-05-12 17:56 | Emergency (ER) | payer MEDICARE, OTHER | END 2018-05-13 01:29 | disposition home or self-care (01) | LOC: ED 05-13 01:29 ==